=== PATIENT | female | born 1930 | race Caucasian/White ===

== ENCOUNTER 2018-04-22 15:57 | Inpatient (IN) | payer BC, OTHER ==
[~2018-04-22] VITALS: Ht 162.6 cm; Wt 74.8 kg
[2018-04-22] MEDS ORDERED: GLC/500 PO (16:23)
[2018-04-22] MEDS ORDERED: NAPR1TAB9 PO (16:23)
[2018-04-22] MEDS ORDERED: SIMV10TA2 PO (16:23)
[2018-04-22] MEDS ORDERED: ASPI81TA28 PO (16:23)
[2018-04-22] MEDS ORDERED: POTA10CA28 PO (16:23)
[2018-04-22] MEDS ORDERED: BISO2.5T PO (16:23)
[2018-04-22 16:30] LABS: HEMATOCRIT 41.8 % (37-47); HEMOGLOBIN 13.4 g/dL (12.0-16.0); MEAN CELL VOLUME 90.5 fL (80-100); MEAN CORPUSCULAR HGB CONC 32.1 g/dl (32-36); MEAN PLATELET VOLUME 9.7 fL (7.4-10.4); PLATELET COUNT 282 K/uL (130-400); RED CELL DISTRIBUTION WIDTH CV 15.4 % (11.5-14.5); RED CELL DISTRIBUTION WIDTH SD 50.7 fL (36.4-46.3); WHITE BLOOD COUNT 16.43 K/uL (4.8-10.8)
[2018-04-22] MEDS ORDERED: OPTIRAY 320 IV PRN (16:30)
[2018-04-22 16:38] LABS: PTT PATIENT 26.9 SECONDS (21.0-31.0)
[2018-04-22 16:47] LABS: BASO % 0.2 %; BASO ABS # 0.04 K/uL (0-0.2); CALCIUM 8.2 mg/dl (8.5-10.1); CREATININE 0.92 mg/dl (0.60-1.20); EOS % 4.6 %; EOS ABS # 0.76 K/uL (0-0.5); IG# 0.18 K/uL (0.00-0.02); LYMPH ABS # 1.15 K/uL (1.2-3.4); MONO % 7.5 %; MONO ABS # 1.24 K/uL (0.11-0.59); NEUT % 79.6 %; NEUT ABS # 13.06 K/uL (1.4-6.5); POTASSIUM 4.2 mmol/L (3.5-5.1)
--- NOTE | 2018-04-22 17:34 | DIAGNOSTIC IMAGING REPORT ---
CT ANGIOGRAPHY OF THE CHEST, PULMONARY EMBOLUS PROTOCOL CLINICAL HISTORY: Shortness of breath. COMPARISON STUDY: No previous studies for comparison. TECHNIQUE: Following IV administration of 116 mL of Optiray-320, helical axial images of the chest were obtained utilizing the pulmonary embolus protocol. Maximal intensity projections and sagittal and coronal reformats were viewed on an independent 3D workstation. IV contrast was administered without complication. A dose lowering technique was utilized adhering to the principles of ALARA. CT DOSE: 385.01 mGy.cm FINDINGS: No pulmonary emboli are identified. There is no evidence of thoracic aortic dissection. The heart is mildly enlarged. There is no pericardial effusion. Extensive coronary artery calcification is noted. Small right and trace left pleural effusions are noted. Subpleural bilateral airspace opacities, greatest within the right lower lobe, are noted. There is mild interlobular septal thickening. There is no pneumothorax. No cavitation is present. Multiple mildly enlarged mediastinal and right hilar lymph nodes are noted. Index subcarinal lymph node measures 1.2 cm. Index right paratracheal left node measures 1.4 cm. No suspicious osseous lesions are noted. Upper abdomen is unremarkable. IMPRESSION: 1. No pulmonary emboli identified. 2. Bilateral subpleural airspace opacities with interstitial thickening. Pulmonary edema is favored however superimposed pneumonia could appear similar. A chest CT in one month to ensure resolution is recommended. 3. Small right and trace left pleural effusions. 4. Mild mediastinal and right hilar lymphadenopathy which is likely reactive but can be assessed on follow-up chest CT to ensure resolution. Electronically signed by: Alec Lara M.D. 04/22/2018 5:33 PM Dictated Date/Time: 04/22/2018 5:22 PM
[2018-04-22] MEDS ORDERED: FUROSEMIDE 40 MG/4 ML VIAL IV STA (17:40)
[2018-04-22] MEDS ORDERED: PIPERACILLIN/TAZOBACTAM 4.5 GM/100ML D5W IV STA (17:40)
[2018-04-22] MEDS ORDERED: MAGNESIUM HYDROXIDE SUSP 30 ML UDC PO PRN (18:30)
[2018-04-22] MEDS ORDERED: NAPROXEN 250 MG TAB PO PRN (18:30)
[2018-04-22] MEDS ORDERED: ONDANSETRON INJ 2 MG/ML 2 ML VIAL IV PRN (18:30)
[2018-04-22] MEDS ORDERED: ACETAMINOPHEN 325 MG TAB PO PRN (18:30)
--- NOTE | 2018-04-22 18:41 | History and Physical ---
History & Physical Date & Time of Service: Apr 22, 2018 at 18:34 Chief Complaint: Shortness Of Breath, Swelling Legs & Feet Primary Care Physician: Dajuan Isaac M.D. History of Present Illness Source: patient 87 y/o F c/o SOB. Pt states that she has been SOB over the last two week. This is getting worse. It is with any exertion, including getting dressed this AM. She does not have SOB at rest or when lying flat. She also started to have b/l LE swelling which has never happened. She states it is better in the AM, but worse if she is on her feet for long periods. Her SOB resolves when she rests. No prior hx of breathing issues. She has been eating without issue. Pt denies fever, chest pain, abd pain, n/v/c/d, LE pain. Past Medical/Surgical History DM HTN Hyperlipidemia Family History Family history was reviewed; no changes noted. Denies TN, CHF, heart issues Social History Smoking Status: Never Smoker Alcohol Use: none Drug Use: none Allergies Coded Allergies: No Known Allergies (Unverified , 04/22/18) Home Medications Scheduled Aspirin (Aspirin Ec), 81 MG PO DAILY Bisoprolol & Hydrochlorothiazi (Bisoprolol Fumarate/[place]), 5-6.25 MG PO BID Metformin Hcl (Glucophage), 500 MG PO QPM Potassium Chloride (Micro-K Ext Rel), 10 MEQ PO DAILY Simvastatin (Zocor), 10 MG PO HS Scheduled PRN Naproxen (Aleve), 220 MG PO BID PRN for Pain Review of Systems Pertinent positives and negatives reviewed in HPI--all others negative Physical Exam Vital Signs Date Time Temp Pulse Resp B/P (MAP) Pulse Ox O2 Delivery O2 Flow Rate FiO2 04/22/18 18:27 80 31 94 04/22/18 18:01 143/69 04/22/18 17:57 79 33 93 04/22/18 17:31 124/76 04/22/18 17:27 82 33 93 04/22/18 17:12 88 22 151/67 93 Room Air 04/22/18 17:12 151/67 04/22/18 16:57 79 28 93 04/22/18 16:47 80 04/22/18 16:24 92 Room Air 04/22/18 16:17 95 Room Air 04/22/18 16:11 93 Room Air 04/22/18 16:00 36.9 95 24 150/68 88 Room Air General Appearance: WD/WN, no apparent distress Head: normocephalic, atraumatic Eyes: normal inspection, sclerae normal Respiratory/Chest: no respiratory distress, + crackles (bases) Cardiovascular: regular rate, rhythm, normal peripheral pulses Abdomen/GI: non tender, soft Extremities/Musculoskelatal: no calf tenderness, + pedal edema (1+ pitting) Neurologic/Psych: alert, normal mood/affect, oriented x 3 Skin: normal color, warm/dry Diagnostics Laboratory Results Results Past 24 Hours Test 04/22/18 16:19 04/22/18 16:29 Range/Units White Blood Count 16.43 4.8-10.8 K/uL Red Blood Count 4.62 4.2-5.4 M/uL Hemoglobin 13.4 12.0-16.0 g/dL Hematocrit 41.8 37-47 % Mean Corpuscular Volume 90.5 80-100 fL Mean Corpuscular Hemoglobin 29.0 25-34 pg Mean Corpuscular Hemoglobin Concent 32.1 32-36 g/dl Platelet Count 282 130-400 K/uL Mean Platelet Volume 9.7 7.4-10.4 fL Neutrophils (%) (Auto) 79.6 % Lymphocytes (%) (Auto) 7.0 % Monocytes (%) (Auto) 7.5 % Eosinophils (%) (Auto) 4.6 % Basophils (%) (Auto) 0.2 % Neutrophils # (Auto) 13.06 1.4-6.5 K/uL Lymphocytes # (Auto) 1.15 1.2-3.4 K/uL Monocytes # (Auto) 1.24 0.11-0.59 K/uL Eosinophils # (Auto) 0.76 0-0.5 K/uL Basophils # (Auto) 0.04 0-0.2 K/uL RDW Standard Deviation 50.7 36.4-46.3 fL RDW Coefficient of Variation 15.4 11.5-14.5 % Immature Granulocyte % (Auto) 1.1 % Immature Granulocyte # (Auto) 0.18 0.00-0.02 K/uL Prothrombin Time 10.8 9.0-12.0 SECONDS Prothromb Time International Ratio 1.0 0.9-1.1 Activated Partial Thromboplast Time 26.9 21.0-31.0 SECONDS Partial Thromboplastin Ratio 1.0 Sodium Level 140 136-145 mmol/L Potassium Level 4.2 3.5-5.1 mmol/L Chloride Level 108 98-107 mmol/L Carbon Dioxide Level 24 21-32 mmol/L Anion Gap 8.0 3-11 mmol/L Blood Urea Nitrogen 34 7-18 mg/dl Creatinine 0.92 0.60-1.20 mg/dl Est Creatinine Clear Calc Drug Dose 43.5 ml/min Estimated GFR () 65.3 Estimated GFR (Non- 56.4 BUN/Creatinine Ratio 37.1 10-20 Random Glucose 128 70-99 mg/dl Calcium Level 8.2 8.5-10.1 mg/dl Pro-B-Type Natriuretic Peptide 1213 0-1800 pg/ml Bedside Troponin I < 0.030 0-0.045 ng/ml Microbiology Results 04/22/18 Blood Culture, Ordered Pending 04/22/18 Blood Culture, Ordered Pending Diagnostic Radiology CTA: neg for PE, CHF noted, ?? PNA EKG NSR Impression Assessment and Plan 87 y/o F who was admitted on 04/22 with new onset CHF SOB: no prior hx of CHF Hypoxic on presentation, improved s/p lasix CTA neg for PE, but notes CHF with ?? PNA Given pt has elevated WBC, will continue with abx, switch to rocephin Possibly CHF is situational related to PNA ECHO pending K WNL, monitor s/p lasix Given lasix 40mg IV in the ED, will hold further and leave to discretion of day team given lasix naive pt Trop neg x1, repeat x1 pending A1c, lipids pending DM: stable, continue home meds A1c pending HTN: stable, continue home meds Hyperlipidemia: stable, continue home meds CAD prevention: no hx of TN, CVA Continue aspirin 81mg, although could continue d/c given pt is >70 y/o without hx requiring use Other: DNR/DNI, pt request and has recently completed paperwork with same request. Family is present and agrees DM diet Lovenox for DVT proph Resuscitation Status VTE Prophylaxis Will order VTE Prophylaxis: Yes Additional Copies To Dajuan Isaac M.D.
[2018-04-22 19:55] VITALS: BP 130/65; PULSE 81; TEMP 36.7; O2SAT 95; Ht 162.6 cm; Wt 74.8 kg
[2018-04-22] MEDS ORDERED: CEFTRIAXONE SOD INJ 1 GM in DEXTROSE 5% ADD-VANTAGE 50ML 50 ML IV SCH (22:00)
--- NOTE | 2018-04-22 22:08 | EMERGENCY ROOM VISIT NOTE ---
History Report prepared by Kirsten: Luca Daley Under the Supervision of: Dr. Dajuan Leiva M.D. First contact with patient: 16:05 Chief Complaint: SHORTNESS OF BREATH Stated Complaint: SHORTNESS OF BREATH, SWELLING LEGS & FEET History of Present Illness The patient is a 87 year old female with a past medical history of HTN and Diabetes who presents to the Emergency Room with complaints of shortness of breath. The patient notes the symptoms started x2 weeks ago when she started taking Meloxicam for arthritis and swelling in her hands as well as after taking a car-ride to [place]. She states she took the Meloxicam for x6 days and then her legs started to swell so she stopped the medication and has been off of it x9 days. She states she feels the shortness of breath with exertion, and becomes tired/weak. She does also note an intermittent cough and states she hasn't been eating well since this started. She denies leg pain, chest pain/ pressure, cold symptoms, diaphoresis, or fever. The patient denies a history of blood clots, COPD, heart failure, or emphysema. Source of History: patient Onset: 2 weeks Symptom Intensity: moderate Timing: waxes/wanes Modifying Factors (Worsening): exertion Associated Symptoms: + cough, + weakness, No fevers, No chills, No diaphoresis, No chest pain, No nausea, No vomiting, No abdominal pain, No diarrhea Review of Systems See HPI for pertinent positives & negatives. A total of 10 systems reviewed and were otherwise negative. Constitutional: + weakness, No fever, No chills, No sweats Respiratory: + cough, + shortness of breath Cardiovascular: No chest pain Abdomen: No pain, No vomiting, No diarrhea, No constipation Musculoskeletal: + swelling Genitourinary - Female: No dysuria, No urinary frequency, No urinary urgency , No urinary incontinence Integumentary: No rash Past Medical & Surgical Medical Problems: (1) CHF (congestive heart failure) (2) Diabetes (3) HTN (hypertension) Family History Patient reports no known family medical history. Social History Smoking Status: Never Smoker Smokeless Tobacco Use: Unknown Drug Use: none Occupation Status: retired Current/Historical Medications Scheduled Aspirin (Aspirin Ec), 81 MG PO DAILY Bisoprolol & Hydrochlorothiazi (Bisoprolol Fumarate/[place]), 5-6.25 MG PO BID Metformin Hcl (Glucophage), 500 MG PO QPM Potassium Chloride (Micro-K Ext Rel), 10 MEQ PO DAILY Simvastatin (Zocor), 10 MG PO HS Scheduled PRN Naproxen (Aleve), 220 MG PO BID PRN for Pain Allergies Coded Allergies: No Known Allergies (Unverified , 04/22/18) Physical Exam Vital Signs Date Time Temp Pulse Resp B/P (MAP) Pulse Ox O2 Delivery O2 Flow Rate FiO2 04/22/18 18:27 80 31 94 04/22/18 18:01 143/69 04/22/18 17:57 79 33 93 04/22/18 17:31 124/76 04/22/18 17:27 82 33 93 04/22/18 17:12 88 22 151/67 93 Room Air 04/22/18 17:12 151/67 04/22/18 16:57 79 28 93 04/22/18 16:47 80 04/22/18 16:24 92 Room Air 04/22/18 16:17 95 Room Air 04/22/18 16:11 93 Room Air 04/22/18 16:00 36.9 95 24 150/68 88 Room Air Physical Exam Constitutional: Vital signs reviewed. Eyes: Pupils are equal round reactive to light. Conjunctiva are noninjected. ENT: Pharynx is clear without erythema or exudate. Mucous membranes are moist. Neck supple without meningeal signs. Respiratory: Clear to auscultation bilaterally. Breath sounds are equal bilaterally. Cardiovascular: Regular rate and rhythm. No rubs or gallops. GI: Soft, nondistended and nontender. Bowel sounds are present. Musculoskeletal: Pitting edema noted to the bilateral lower extremities. No lower extremity tenderness. Integumentary: No cyanosis. Neurological: The patient is awake and alert. No focal deficits. Psychiatric: Normal affect. Medical Decision & Procedures ER Provider Diagnostic Interpretation: CT ANGIOGRAPHY OF THE CHEST, PULMONARY EMBOLUS PROTOCOL CLINICAL HISTORY: Shortness of breath. COMPARISON STUDY: No previous studies for comparison. TECHNIQUE: Following IV administration of 116 mL of Optiray-320, helical axial images of the chest were obtained utilizing the pulmonary embolus protocol. Maximal intensity projections and sagittal and coronal reformats were viewed on an independent 3D workstation. IV contrast was administered without complication. A dose lowering technique was utilized adhering to the principles of ALARA. CT DOSE: 385.01 mGy.cm FINDINGS: No pulmonary emboli are identified. There is no evidence of thoracic aortic dissection. The heart is mildly enlarged. There is no pericardial effusion. Extensive coronary artery calcification is noted. Small right and trace left pleural effusions are noted. Subpleural bilateral airspace opacities, greatest within the right lower lobe, are noted. There is mild interlobular septal thickening. There is no pneumothorax. No cavitation is present. Multiple mildly enlarged mediastinal and right hilar lymph nodes are noted. Index subcarinal lymph node measures 1.2 cm. Index right paratracheal left node measures 1.4 cm. No suspicious osseous lesions are noted. Upper abdomen is unremarkable. IMPRESSION: 1. No pulmonary emboli identified. 2. Bilateral subpleural airspace opacities with interstitial thickening. Pulmonary edema is favored however superimposed pneumonia could appear similar. A chest CT in one month to ensure resolution is recommended. 3. Small right and trace left pleural effusions. 4. Mild mediastinal and right hilar lymphadenopathy which is likely reactive but can be assessed on follow-up chest CT to ensure resolution. Laboratory Results 04/22/18 16:19 Red Blood Count 4.62, Mean Corpuscular Volume 90.5, Mean Corpuscular Hemoglobin 29.0, Mean Corpuscular Hemoglobin Concent 32.1, Mean Platelet Volume 9.7, Neutrophils (%) (Auto) 79.6, Lymphocytes (%) (Auto) 7.0, Monocytes (%) (Auto) 7.5, Eosinophils (%) (Auto) 4.6, Basophils (%) (Auto) 0.2, Neutrophils # (Auto) 13.06, Lymphocytes # (Auto) 1.15, Monocytes # (Auto) 1.24, Eosinophils # (Auto) 0.76, Basophils # (Auto) 0.04 04/22/18 16:19 Test 04/22/18 16:19 04/22/18 16:29 White Blood Count 16.43 K/uL (4.8-10.8) Red Blood Count 4.62 M/uL (4.2-5.4) Hemoglobin 13.4 g/dL (12.0-16.0) Hematocrit 41.8 % (37-47) Mean Corpuscular Volume 90.5 fL (80-100) Mean Corpuscular Hemoglobin 29.0 pg (25-34) Mean Corpuscular Hemoglobin Concent 32.1 g/dl (32-36) Platelet Count 282 K/uL (130-400) Mean Platelet Volume 9.7 fL (7.4-10.4) Neutrophils (%) (Auto) 79.6 % Lymphocytes (%) (Auto) 7.0 % Monocytes (%) (Auto) 7.5 % Eosinophils (%) (Auto) 4.6 % Basophils (%) (Auto) 0.2 % Neutrophils # (Auto) 13.06 K/uL (1.4-6.5) Lymphocytes # (Auto) 1.15 K/uL (1.2-3.4) Monocytes # (Auto) 1.24 K/uL (0.11-0.59) Eosinophils # (Auto) 0.76 K/uL (0-0.5) Basophils # (Auto) 0.04 K/uL (0-0.2) RDW Standard Deviation 50.7 fL (36.4-46.3) RDW Coefficient of Variation 15.4 % (11.5-14.5) Immature Granulocyte % (Auto) 1.1 % Immature Granulocyte # (Auto) 0.18 K/uL (0.00-0.02) Prothrombin Time 10.8 SECONDS (9.0-12.0) Prothromb Time International Ratio 1.0 (0.9-1.1) Activated Partial Thromboplast Time 26.9 SECONDS (21.0-31.0) Partial Thromboplastin Ratio 1.0 Anion Gap 8.0 mmol/L (3-11) Est Creatinine Clear Calc Drug Dose 43.5 ml/min Estimated GFR () 65.3 Estimated GFR (Non- 56.4 BUN/Creatinine Ratio 37.1 (10-20) Calcium Level 8.2 mg/dl (8.5-10.1) Pro-B-Type Natriuretic Peptide 1213 pg/ml (0-1800) Bedside Troponin I < 0.030 ng/ml (0-0.045) Medications Administered Medications (Trade) Dose Ordered Sig/Cathy Route Start Time Stop Time Status Last Admin Dose Admin Furosemide (Lasix Inj) 40 mg NOW STAT IV 04/22/18 17:40 04/22/18 17:47 DC 04/22/18 19:28 40 MG Piperacillin Sod/ Tazobactam Sod (Zosyn Iv) 4.5 gm NOW STAT IV 04/22/18 17:40 04/22/18 17:47 DC 04/22/18 19:36 4.5 GM ECG Per My Interpretation Indication: SOB/dyspnea Rate (beats per minute): 88 Rhythm: normal sinus Findings: nonspecific-ST abn, other (no ST elevations or PVCs) ED Course Rechecks: [id number]: Reviewed test rests with patient. At this time she agrees to admission. All questions answered. Will call hospitalist for admission. Medical Decision This is an 87-year-old female presents with shortness of breath. Differential diagnosis includes acute coronary syndrome, CHF, pulmonary embolism, pneumonia, pleural effusion, anemia. I did perform a limited focused review of portions of the patient's old chart on the electronic medical record. The patient has had no recent pertinent visits to this hospital. I did evaluate the patient as noted above. Patient is presenting with dyspnea on exertion. She denies any chest discomfort. IV access was established. The patient was placed on a continuous telemetry monitor. She is initially hypoxic on room air. This did improve spontaneously. I did order and personally review the patient's 12-lead EKG as described above. I did order and review the patient's blood work as noted in the electronic medical record. She has an elevated white blood cell count. Her troponin is negative. After discussion with patient, I did order a CT of the chest. I did review the images myself as well as the radiology report as described above. There is no evidence of pulmonary embolism. She does have what looks like pulmonary edema as well as underlying infiltrate bilaterally with pleural effusions. The patient does state that she has been coughing somewhat and has an elevated white count. Blood cultures were obtained and she was given Zosyn IV. I also treated her with Lasix IV. I did discuss the test results with the patient and her family. As the patient is unable to even walk without becoming very short of breath and was hypoxic initially on arrival here I did recommend hospitalization for further care and evaluation. I did discuss the case with the hospitalist and director case. Medication Reconcilliation Current Medication List: was personally reviewed by me Blood Pressure Screening Patient's blood pressure: Elevated blood pressure Blood pressure disposition: Referred to PCP Consults Time Called: [phone] Consulting Physician: Dr. Artis Returned Call: [phone] Agrees to admit the patient Impression Primary Impression: Bilateral pneumonia Additional Impressions: Congestive heart failure Bilateral pleural effusion Scribe Attestation The scribe's documentation has been prepared under my direct and personally reviewed by me in its entirety. I confirm that the note above accurately reflects all work, treatment, procedures, and medical decision making performed by me. Departure Information Dispostion Being Evaluated By Hospitalist Patient Instructions My [facility] Problem Qualifiers Primary Impression: Bilateral pneumonia Pneumonia type: due to unspecified organism Lung location: lower lobe of lung Qualified Codes: J18.1 - Lobar pneumonia, unspecified organism Additional Impressions: Congestive heart failure Heart failure type: unspecified Heart failure chronicity: acute Qualified Codes: I50.9 - Heart failure, unspecified
[2018-04-22] MEDS: SIMVASTATIN 10 MG TAB PO SCH (22:34)
[2018-04-22] MEDS: ENOXAPARIN 40 MG/0.4 ML SYR SC SCH (22:36)
[2018-04-22 23:21] VITALS: BP 135/68; PULSE 84; TEMP 37.5; O2SAT 92
[2018-04-22] MEDS: CEFTRIAXONE SOD INJ 1 GM in DEXTROSE 5% ADD-VANTAGE 50ML 50 ML IV SCH (23:45)
[2018-04-23] VITALS (8 sets, daily range): BP systolic 115–150; BP diastolic 64–77; PULSE 76–122; TEMP 36.5–37.4; O2SAT 91–98
[2018-04-23 07:34] LABS: CALCIUM 7.6 mg/dl (8.5-10.1); CREATININE 0.97 mg/dl (0.60-1.20); POTASSIUM 3.9 mmol/L (3.5-5.1)
[2018-04-23] MEDS ORDERED: AZITHROMYCIN IV 500 MG in DEXTROSE 5% 250ML 250 ML IV ONE (07:58)
[2018-04-23] MEDS ORDERED: GLUCAGON FOR INJ 1 MG VIAL SQ PRN (08:15)
[2018-04-23] MEDS ORDERED: CARBOHYDRATES FOR HYPOGLYCEMIA PO PRN (08:15)
[2018-04-23] MEDS ORDERED: GLUCOSE 40% GEL 15 GM TUBE PO PRN (08:15)
[2018-04-23] MEDS ORDERED: GLUCOSE 10 TABS/TUBE PO PRN (08:15)
[2018-04-23] MEDS ORDERED: DEXTROSE 50% 50 ML SYR IV PRN (08:15)
--- NOTE | 2018-04-23 09:27 | Hospitalist Progress Note ---
Hospitalist Progress Note Date of Service Apr 23, 2018. Subjective Pt evaluation today including: conversation w/ patient, physical exam, lab review Patient complains of pain in her bilateral hands right greater than left. She admits to a dry cough and shortness of breath for the last 2 weeks. No fevers but has felt very fatigued. She denies any rashes or tick bites. She worked in a [employer] but in the office side was not exposed to any inhaled chemicals. She never smoked and only had minimal exposure to secondhand smoke as a child from her father. She has never had pneumonia before. No history of any wheezing or lung problems. Telemetry with sinus tachycardia starting earlier this morning, but previous to that was normal sinus rhythm with rates in the 80s. Of note, she has not received her beta-bonnie as it is not available on our formulary Constitutional: + fatigue All Other Systems: Reviewed and Negative Objective Vital Signs Date Time Temp Pulse Resp B/P (MAP) Pulse Ox O2 Delivery O2 Flow Rate FiO2 04/23/18 07:29 36.5 76 18 115/73 (87) 98 04/23/18 03:37 36.7 85 18 115/64 (81) 92 Room Air 04/23/18 00:02 Room Air 04/22/18 23:21 37.5 84 18 135/68 (90) 92 Room Air 04/22/18 19:55 36.7 81 21 130/65 95 Room Air 04/22/18 19:26 36.9 76 22 133/66 93 04/22/18 19:14 76 22 133/66 93 Room Air 04/22/18 18:27 80 31 94 04/22/18 18:01 143/69 04/22/18 17:57 79 33 93 04/22/18 17:31 124/76 04/22/18 17:27 82 33 93 04/22/18 17:12 88 22 151/67 93 Room Air 04/22/18 17:12 151/67 04/22/18 16:57 79 28 93 04/22/18 16:47 80 04/22/18 16:24 92 Room Air 04/22/18 16:17 95 Room Air 04/22/18 16:11 93 Room Air 04/22/18 16:00 36.9 95 24 150/68 88 Room Air Physical Exam General Appearance: WD/WN, no apparent distress Eyes: normal inspection, PERRL, EOMI, sclerae normal ENT: hearing grossly normal, pharynx normal Neck: supple, no adenopathy, no JVD, no carotid bruits, trachea midline Respiratory/Chest: no respiratory distress, no accessory muscle use, + crackles (At the bases bilaterally right greater than left, a few dry crackles in the right middle lung field) Cardiovascular: no murmur, + tachycardia (With regular rhythm) Abdomen: normal bowel sounds, non tender, soft, no organomegaly, no pulsatile mass Extremities: non-tender, no calf tenderness, + swelling (Very trace edema in the lower extremities left greater than right) Neurologic/Psychiatric: no motor/sensory deficits, alert, normal mood/affect, oriented x 3 Skin: normal color, warm/dry, no rash Lymphatic: no adenopathy Laboratory Results Last 24 Hours Test 04/22/18 16:19 04/22/18 16:29 04/22/18 20:14 04/23/18 00:17 White Blood Count 16.43 K/uL Red Blood Count 4.62 M/uL Hemoglobin 13.4 g/dL Hematocrit 41.8 % Mean Corpuscular Volume 90.5 fL Mean Corpuscular Hemoglobin 29.0 pg Mean Corpuscular Hemoglobin Concent 32.1 g/dl Platelet Count 282 K/uL Mean Platelet Volume 9.7 fL Neutrophils (%) (Auto) 79.6 % Lymphocytes (%) (Auto) 7.0 % Monocytes (%) (Auto) 7.5 % Eosinophils (%) (Auto) 4.6 % Basophils (%) (Auto) 0.2 % Neutrophils # (Auto) 13.06 K/uL Lymphocytes # (Auto) 1.15 K/uL Monocytes # (Auto) 1.24 K/uL Eosinophils # (Auto) 0.76 K/uL Basophils # (Auto) 0.04 K/uL RDW Standard Deviation 50.7 fL RDW Coefficient of Variation 15.4 % Immature Granulocyte % (Auto) 1.1 % Immature Granulocyte # (Auto) 0.18 K/uL Prothrombin Time 10.8 SECONDS Prothromb Time International Ratio 1.0 Activated Partial Thromboplast Time 26.9 SECONDS Partial Thromboplastin Ratio 1.0 Sodium Level 140 mmol/L Potassium Level 4.2 mmol/L Chloride Level 108 mmol/L Carbon Dioxide Level 24 mmol/L Anion Gap 8.0 mmol/L Blood Urea Nitrogen 34 mg/dl Creatinine 0.92 mg/dl Est Creatinine Clear Calc Drug Dose 43.5 ml/min Estimated GFR () 65.3 Estimated GFR (Non- 56.4 BUN/Creatinine Ratio 37.1 Random Glucose 128 mg/dl Calcium Level 8.2 mg/dl Pro-B-Type Natriuretic Peptide 1213 pg/ml Bedside Troponin I < 0.030 ng/ml Bedside Glucose 112 mg/dl Troponin I < 0.015 ng/ml Test 04/23/18 06:07 04/23/18 07:23 Sodium Level 140 mmol/L Potassium Level 3.9 mmol/L Chloride Level 109 mmol/L Carbon Dioxide Level 21 mmol/L Anion Gap 10.0 mmol/L Blood Urea Nitrogen 33 mg/dl Creatinine 0.97 mg/dl Est Creatinine Clear Calc Drug Dose 40.6 ml/min Estimated GFR () 61.3 Estimated GFR (Non- 52.9 BUN/Creatinine Ratio 34.5 Random Glucose 118 mg/dl Estimated Average Glucose 154 mg/dl Hemoglobin A1c 7.0 % Calcium Level 7.6 mg/dl Triglycerides Level 298 mg/dl Cholesterol Level 97 mg/dl HDL Cholesterol 15 mg/dl LDL Cholesterol, Calculated 22 mg/dl VLDL Cholesterol, Calculated 60 mg/dl Cholesterol/HDL Ratio 6.5 Bedside Glucose 126 mg/dl Diagnostic Results Hand x-rays and CT chest images personally reviewed by me and agree with the following reports: CT ANGIOGRAPHY OF THE CHEST, PULMONARY EMBOLUS PROTOCOL CLINICAL HISTORY: Shortness of breath. COMPARISON STUDY: No previous studies for comparison. TECHNIQUE: Following IV administration of 116 mL of Optiray-320, helical axial images of the chest were obtained utilizing the pulmonary embolus protocol. Maximal intensity projections and sagittal and coronal reformats were viewed on an independent 3D workstation. IV contrast was administered without complication. A dose lowering technique was utilized adhering to the principles of ALARA. CT DOSE: 385.01 mGy.cm FINDINGS: No pulmonary emboli are identified. There is no evidence of thoracic aortic dissection. The heart is mildly enlarged. There is no pericardial effusion. Extensive coronary artery calcification is noted. Small right and trace left pleural effusions are noted. Subpleural bilateral airspace opacities, greatest within the right lower lobe, are noted. There is mild interlobular septal thickening. There is no pneumothorax. No cavitation is present. Multiple mildly enlarged mediastinal and right hilar lymph nodes are noted. Index subcarinal lymph node measures 1.2 cm. Index right paratracheal left node measures 1.4 cm. No suspicious osseous lesions are noted. Upper abdomen is unremarkable. IMPRESSION: 1. No pulmonary emboli identified. 2. Bilateral subpleural airspace opacities with interstitial thickening. Pulmonary edema is favored however superimposed pneumonia could appear similar. A chest CT in one month to ensure resolution is recommended. 3. Small right and trace left pleural effusions. 4. Mild mediastinal and right hilar lymphadenopathy which is likely reactive but can be assessed on follow-up chest CT to ensure resolution. L HAND MIN 3 VIEWS ROUTINE, R HAND MIN 3 VIEWS ROUTINE CLINICAL HISTORY: hand joint pain R>L x 2 weeks COMPARISON STUDY: None. FINDINGS: The bones are osteopenic. No acute fracture or dislocation within the right or left hand. No erosive changes identified. Bhda-[id number] osteoarthritis within the PIP and DIP joints of the bilateral hands. This is most pronounced within the DIP joints. Mild soft tissue swelling within the hands most pronounced at the index fingers. IMPRESSION: 1. No fracture or dislocation within the right or left hand. 2. Mild/moderate osteoarthritis. 3. Mild soft tissue swelling within the hand. Lower extremity bilateral venous Doppler-negative for DVT Assessment and Plan This patient is an 87 y/o female with a history of HTN, DM 2, hyperlipidemia, who was admitted with worsening shortness of breath, peripheral edema, with suspected acute diastolic CHF as well as right middle and lower lobe pneumonias. Also with acute hypoxic respiratory failure. Dyspnea/pneumonia/sepsis POA/acute hypoxic respiratory failure-with tachycardia , tachypnea, leukocytosis, and pneumonia seen on CT chest-meets criteria for sepsis. She was hypoxic upon arrival and is now weaned off of oxygen. She received 1 dose of IV Lasix in the ER for suspected CHF. She was also started on antibiotics with Rocephin. CT angiogram negative for PE. Venous Doppler of the lower extremities negative for DVT. Afebrile here, with profound fatigue for the last 2 weeks-question if was having fevers at home. Some component of acute on chronic diastolic CHF is contributing to her presentation as well. 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 ProBNP is normal for her age. I believe her CT chest findings are more consistent with infectious process rather than pulmonary edema. She received 1 dose of IV Lasix in the ER. -No further Lasix to be given -Continue to monitor I's and O's, daily weights -Optimize blood pressure control HTN/sinus tachycardia-likely secondary to acute infectious process but also withdrawal from beta-bonnie -Replace bisoprolol with metoprolol 12.5 mg p.o. 4 times daily -Monitor on telemetry -Holding HCTZ from home DMII: stable, Hgb A1c here is 7.0%, well controlled, on metformin only at home -Hold home metformin given recent IV contrast dye -Accu-Cheks and sliding scale insulin for now Hyperlipidemia: stable, continue home statin, ASA Hand pain and swelling-treated with NSAIDs as an outpatient -Obtain bilateral hand x-rays, continue naproxen as needed for pain Prophylaxis-Lovenox SQ Disposition-remain on telemetry
[2018-04-23] MEDS ORDERED: METOPROLOL TARTRATE 25 MG TAB PO ONE (09:33)
[2018-04-23] MEDS: ASPIRIN 81 MG ECTAB PO SCH (09:41)
[2018-04-23] MEDS: POTASSIUM CHLORIDE 10 MEQ TABCR PO SCH (09:41)
--- NOTE | 2018-04-23 12:26 | Clinical Documentation Query ---
CLINICAL DOCUMENTATION QUERY 87 year old female who presents with pneumonia and possible new onset CHF. In your clinical opinion is this patient being managed for: (x ) Acute diastolic (preserved EF) CHF ( ) Acute systolic (reduced EF) CHF ( ) Acute systolic & diastolic CHF ( ) Not Agree ( ) Other explanation of clinical findings (No explanation is considered a No Response) ( ) Unable to determine ( ) Need to Discuss (Phone CDS or qliq) (No discussion is considered a No Response) The medical record reflects the following clinical findings, treatment, and risk factors. Clinical Indicators: CHF per H&P. ?of CHF on CTA Treatment: IV Lasix, telemetry, echo Risk Factors: Age, pneumonia, Please clarify and document your clinical opinion in the progress notes and discharge summary. Terms such as "probable", "suspected", "likely", "questionable", "possible", or "still to be ruled out" are acceptable. IF IN AGREEMENT, YOU MUST DOCUMENT ABOVE DIAGNOSTIC STATEMENT IN DAILY PROGRESS NOTES AND DISCHARGE SUMMARY. This document is not part of the patient's record. Thank You, Cristofer Cohen, OLGA [phone] & via qlicCONNECT
[2018-04-23] MEDS: INSULIN ASPART 100 UNITS/ML 3 ML PEN SC SCH ×3 (13:32→20:41)
--- NOTE | 2018-04-23 13:33 | ECHOCARDIOGRAM REPORT ---
*NOTICE TO RECEIVING [employer] This information is strictly Confidential and protected under [place] law. [place] law prohibits you from making any further disclosure of this information unless further disclosure is expressly permitted by the written consent of the person to whom it pertains or is authorized by law. A general authorization for the release of medical or other information is not sufficient for this purpose. Hospital accepts no responsibility if the information is made available to any other person, INCLUDING THE PATIENT. Interpretation Summary * Name: JJ ABEBE Study Date: 04/23/2018 06:50 AM BP: 115/73 mmHg * Patient Location: C.2T\S\S233\S\1 HR: 86 * : 1930 (M/d/yyyy) Gender: Female Height: 64 in * Age: 87 yrs Ethnicity: CA Weight: 165 lb * Ordering Physician: Melissa Artis * Referring Physician: Self, Referred * Performed By: Teresa Gonzalez RDCS * * Reason For Study: CHF * BSA: 1.8 m2 * -- Conclusions -- * 1. Normal LV size. Moderate concentric LVH. * 2. LVEF 65-70%. No regional wall motion abnormalities. * 3. Normal RV size and function. * 4. Grade I diastolic dysfunction. * 5. No significant valvular pathology. * 6. Normal estimated RA and PA pressures. * 7. No prior studies for comparison. Procedure Details * A complete two-dimensional transthoracic echocardiogram was performed (2D, M-mode, Doppler and color flow Doppler). Left Ventricle * The left ventricle is grossly normal size. * There is moderate concentric left ventricular hypertrophy. * Ejection Fraction = 65-70%. * No regional wall motion abnormalities noted. Right Ventricle * The right ventricle is grossly normal size. * The right ventricular systolic function is normal as assessed by tricuspid annular plane systolic excursion (TAPSE) (normal >1.5 cm). Atria * The left atrium is mildly dilated. * Right atrial size is normal. * No ASD detected; PFO is not assessed. Mitral Valve * The mitral valve is grossly normal. * There is no mitral valve stenosis. * There is trace mitral regurgitation. Tricuspid Valve * There is trace tricuspid regurgitation. * Right ventricular systolic pressure is normal. Aortic Valve * The aortic valve opens well. * The aortic valve is trileaflet. * No hemodynamically significant valvular aortic stenosis. * There is no significant aortic regurgitation. Pulmonic Valve * The pulmonary valve is inadequately visualized, but the Doppler data is adequate for interpretation. * Pulmonic stenosis is absent. * There is no significant pulmonary regurgitation. Great Vessels * The aortic root and proximal ascending aorta are normal sized. Pericardium/Pleural * Trivial pericardial effusion Great Vessels * Normal inferior vena cava size and collapsability with sniff indicates a normal right atrial pressure of 3 mmHg Left Ventricular Diastolic Function * Grade I diastolic dysfunction, (abnormal relaxation pattern). MMode 2D Measurements and Calculations IVSd 1.5 cm IVSs 2.1 cm LVIDd 4.1 cm LVIDs 2.6 cm LVPWd 1.7 cm LVPWs 2.0 cm IVS/LVPW 0.88 FS 36.3 % EDV(Teich) 74.6 ml ESV(Teich) 25.0 ml EF(Teich) 66.5 % EDV(cubed) 69.4 ml ESV(cubed) 17.9 ml EF(cubed) 74.1 % % IVS thick 40.9 % % LVPW thick 16.8 % LV mass(C)d 271.3 grams LV mass(C)dI 150.5 grams/m\S\2 LV mass(C)s 241.9 grams LV mass(C)sI 134.2 grams/m\S\2 SV(Teich) 49.6 ml SI(Teich) 27.5 ml/m\S\2 SV(cubed) 51.4 ml SI(cubed) 28.5 ml/m\S\2 Ao root diam 3.4 cm Ao root area 9.3 cm\S\2 LA dimension 4.7 cm LA/Ao 1.4 LVAd ap4 19.1 cm\S\2 LVLd ap4 6.8 cm EDV(MOD-sp4) 46.4 ml EDV(sp4-el) 45.6 ml LVAs ap4 11.3 cm\S\2 LVLs ap4 5.9 cm ESV(MOD-sp4) 19.8 ml ESV(sp4-el) 18.6 ml EF(MOD-sp4) 57.3 % EF(sp4-el) 59.3 % LVAd ap2 21.5 cm\S\2 LVLd ap2 7.0 cm EDV(MOD-sp2) 54.8 ml EDV(sp2-el) 55.8 ml LVAs ap2 12.4 cm\S\2 LVLs ap2 6.1 cm ESV(MOD-sp2) 22.6 ml ESV(sp2-el) 21.5 ml EF(MOD-sp2) 58.7 % EF(sp2-el) 61.4 % LVLd %diff 3.0 % EDV(MOD-bp) 51.2 ml LVLs %diff 3.5 % ESV(MOD-bp) 21.7 ml EF(MOD-bp) 57.6 % SV(MOD-sp4) 26.5 ml SI(MOD-sp4) 14.7 ml/m\S\2 SV(MOD-sp2) 32.2 ml SI(MOD-sp2) 17.9 ml/m\S\2 SV(MOD-bp) 29.5 ml SI(MOD-bp) 16.3 ml/m\S\2 SV(sp4-el) 27.0 ml SI(sp4-el) 15.0 ml/m\S\2 SV(sp2-el) 34.2 ml SI(sp2-el) 19.0 ml/m\S\2 Doppler Measurements and Calculations MV E max ede 74.4 cm/sec MV A max ede 108.9 cm/sec MV E/A 0.68 MV dec time 0.27 sec Ao V2 max 157.0 cm/sec Ao max PG 9.9 mmHg Ao max PG (full) 4.5 mmHg LV V1 max PG 5.4 mmHg LV V1 max 115.9 cm/sec
--- NOTE | 2018-04-23 14:06 | PULMONARY CONSULTATION ---
DATE OF CONSULTATION: 04/23/2018 TIME: 1:25 p.m. REPORT OF CONSULTATION: The patient was seen in room 233. She is an 87-year-old female with a chief complaint of shortness of breath. Her symptoms began about 2 weeks ago. She noticed she was getting a little winded even getting dressed. She goes out of her home and goes down to her mailbox, which is somewhat downhill. She is short of breath coming back up the hill. To a degree, she has had a little bit of shortness of breath walking from room to room. The patient had developed pain in her hands bilaterally. She saw her primary physician and was ordered meloxicam. She noticed some swelling of her legs after a few days and she thought it may have been the medicine, so she stopped it. The hand pain has continued. For about 2 weeks, she has been feeling fatigued, more than normal. Energy level is low. She feels tired and weak. She has had some intermittent cough. The cough, however, is not acute, but more chronic. She has had a dry tickle type cough for quite some time according to her daughter who was present during this evaluation. She has not coughed up any blood. She has had no chills, fevers or sweats. She feels that her appetite is good. There has been no weight loss or weight gain. There have been no rashes. PAST PULMONARY HISTORY: The patient specifically denies prior asthma, emphysema, tuberculosis, pneumonia, pleurisy or other respiratory problems. PAST SURGICAL HISTORY: Cholecystectomy. PAST MEDICAL HISTORY: 1. Hypertension. 2. Diabetes. 3. Childbirth x4. SOCIAL HISTORY: Tobacco never. ETOH - none. ALLERGIES: No known allergies. FAMILY HISTORY: Mother , age 75, heart disease. The patient does not know the medical history of her father. OCCUPATIONAL HISTORY: The patient worked in a [employer] for 17 years and a [employer] for 5 years. Otherwise, there have been no significant exposures. REVIEW OF SYSTEMS: Negative except for what is noted in the history of present illness. Ten systems reviewed. MEDICATIONS AT HOME: 1. Aspirin 81 mg daily. 2. Bisoprolol/hydrochlorothiazide 5/6.25 one b.i.d. 3. Metformin 500 mg daily. 4. Naproxen 220 mg b.i.d. p.r.n. 5. Potassium 10 mEq daily. 6. Simvastatin 10 mg at bedtime. PHYSICAL EXAMINATION: GENERAL: The patient is a very pleasant 87-year-old female who was cooperative, alert and oriented. She was in no distress at rest. VITAL SIGNS: Temperature is 36.8. The cardiac rate is elevated at 112 per minute. The rhythm is regular. I cannot exclude a gallop. Blood pressure 127/77. SKIN: Her skin was dark. She states that she tans very readily. HEENT: Pupils were reactive to light. Nares were clear. Mouth exam was unremarkable. NECK: Palpation of the neck reveals no lymph nodes. CHEST: Inspection of the chest reveals a dorsal kyphosis. LUNGS: Auscultation of the lung de reveals dry rales bilaterally posteriorly in the lower one-thirds. Respiratory rate is 18 breaths per minute at rest. No wheezing was heard. There was no accessory muscle use. ABDOMEN: Soft. Good bowel sounds were heard. There was a scar in the right upper quadrant from prior cholecystectomy. There was no tenderness to palpation, masses, or organomegaly. EXTREMITIES: Showed that her hands looked to be stiff, more so on the right than the left. There is some minimal swelling. There is trace edema of both lower extremities. There was no cyanosis or clubbing. IMAGING DATA: CAT scan of the chest done on admission showed no evidence of pulmonary emboli. She does have interstitial thickening with subpleural airspace opacities. There is most prominence noted at the right lung base. Small pleural effusions were noted on the right with just trace left effusion. Mild mediastinal adenopathy was noted in the paratracheal lymph node measured up to 14 mm. LABORATORY DATA: White count of 16.43. Hemoglobin 13.4. Platelets 282,000. Coags are normal. Troponin was negative. Cholesterol was normal at 97. Triglycerides elevated at 298. Electrolytes show sodium 140, potassium 3.9, chloride 109, bicarbonate 21. BUN is 33 with a creatinine of 0.97. Echocardiogram is done and the results are still pending. EKG shows a normal sinus rhythm at 88. There are nonspecific ST and T-wave changes. There is a left axis deviation. There was delayed R-wave progression across the precordium with an inability to exclude a prior anterior infarct. IMPRESSION AND PLAN: 1. Shortness of breath of undetermined origin. 2. Small pleural effusions greater on the right. 3. Right middle lobe and right lower lobe infiltrates. 4. Adenopathy. 5. Rule out interstitial lung disease. The patient seems well, but she clearly has abnormal findings. She has more what sounds to be dry rales. This would usually be heard with some type of interstitial process. She does have a history of recent onset of arthritis. It is not clear; however, if this is osteo or rheumatoid. Rheumatoid arthritis can affect the lungs with an interstitial pattern. She did have a ProBNP done that was normal at 1213. This would seem to make the likelihood of congestive heart failure less likely, but not impossible. She did have what sounded like a gallop on exam. The echo may answer some of these questions. I believe the patient should have pulmonary function tests if we can arrange them. I would like to order a rheumatoid factor, sed rate, KALEN, and hypersensitivity pneumonitis panel. She is currently being treated as if she has pneumonia. We cannot entirely exclude that possibility, although it seems a little less likely. I have no problems with ceftriaxone and azithromycin as currently ordered. Further suggestions will be made as her course unfolds. Thank you very much for asking me to assist in her care.
[2018-04-23] MEDS ORDERED: METOPROLOL TARTRATE 25 MG TAB PO STA (15:10)
--- NOTE | 2018-04-23 16:05 | DIAGNOSTIC IMAGING REPORT ---
BILATERAL LOWER EXTREMITY VENOUS DOPPLER HISTORY: leg swelling bilateral,r/o DVT COMPARISON STUDY: None. FINDINGS: There is normal compressibility, flow, and augmentation within the bilateral lower extremity deep venous systems. IMPRESSION: No DVT within the right or left lower extremity. Electronically signed by: Aaron Alves M.D. 04/23/2018 4:04 PM Dictated Date/Time: 04/23/2018 4:02 PM
--- NOTE | 2018-04-23 17:36 | DIAGNOSTIC IMAGING REPORT ---
L HAND MIN 3 VIEWS ROUTINE, R HAND MIN 3 VIEWS ROUTINE CLINICAL HISTORY: hand joint pain R>L x 2 weeks COMPARISON STUDY: None. FINDINGS: The bones are osteopenic. No acute fracture or dislocation within the right or left hand. No erosive changes identified. Lzaj-lt-ufsjyash osteoarthritis within the PIP and DIP joints of the bilateral hands. This is most pronounced within the DIP joints. Mild soft tissue swelling within the hands most pronounced at the index fingers. IMPRESSION: 1. No fracture or dislocation within the right or left hand. 2. Mild/moderate osteoarthritis. 3. Mild soft tissue swelling within the hand. Electronically signed by: Araon Alves M.D. 04/23/2018 5:34 PM Dictated Date/Time: 04/23/2018 5:30 PM
[2018-04-23] MEDS: METOPROLOL TARTRATE 25 MG TAB PO SCH ×2 (18:20→20:41)
[2018-04-23] MEDS: SIMVASTATIN 10 MG TAB PO SCH (20:40)
[2018-04-23] MEDS: ENOXAPARIN 40 MG/0.4 ML SYR SC SCH (20:41)
[2018-04-23] MEDS ORDERED: HYDROCHLOROTHIAZI PO SCH (21:00)
[2018-04-23] MEDS ORDERED: BISOPROLOL PO SCH (21:00)
[2018-04-23] MEDS ORDERED: METOPROLOL TARTRATE 25 MG TAB PO SCH (21:00)
[2018-04-23] MEDS: CEFTRIAXONE SOD INJ 1 GM in DEXTROSE 5% ADD-VANTAGE 50ML 50 ML IV SCH (23:38)
[2018-04-24 03:14] VITALS: BP 125/69; PULSE 117; TEMP 36.7; O2SAT 95
[2018-04-24 06:09] LABS: BASO % 0.3 %; BASO ABS # 0.04 K/uL (0-0.2); EOS % 5.4 %; EOS ABS # 0.78 K/uL (0-0.5); HEMATOCRIT 39.1 % (37-47); IG# 0.16 K/uL (0.00-0.02); LYMPH % 8.3 %; MEAN CELL VOLUME 89.7 fL (80-100); MEAN CORPUSCULAR HEMOGLOBIN 29.8 pg (25-34); MEAN CORPUSCULAR HGB CONC 33.2 g/dl (32-36); MEAN PLATELET VOLUME 9.6 fL (7.4-10.4); MONO % 8.2 %; MONO ABS # 1.19 K/uL (0.11-0.59); NEUT % 76.7 %; NEUT ABS # 11.06 K/uL (1.4-6.5); PLATELET COUNT 266 K/uL (130-400); RED CELL DISTRIBUTION WIDTH SD 49.3 fL (36.4-46.3); WHITE BLOOD COUNT 14.43 K/uL (4.8-10.8)
[2018-04-24 06:46] LABS: ALKALINE PHOSPHATASE 89 U/L (45-117); ALT/SGPT 23 U/L (12-78); AST/SGOT 36 U/L (15-37); BLOOD UREA NITROGEN 30 mg/dl (7-18); CALCIUM 7.7 mg/dl (8.5-10.1); CARBON DIOXIDE 22 mmol/L (21-32); CREATININE 0.83 mg/dl (0.60-1.20); GLUCOSE 117 mg/dl (70-99); POTASSIUM 3.7 mmol/L (3.5-5.1); SODIUM 139 mmol/L (136-145); TOTAL PROTEIN 5.6 gm/dl (6.4-8.2)
[2018-04-24] MEDS: METOPROLOL TARTRATE 25 MG TAB PO SCH ×4 (08:07→20:46)
[2018-04-24] MEDS: ASPIRIN 81 MG ECTAB PO SCH (08:07)
[2018-04-24] MEDS: POTASSIUM CHLORIDE 10 MEQ TABCR PO SCH (08:07)
[2018-04-24] MEDS: AZITHROMYCIN IV 250 MG in DEXTROSE 5% 250ML 250 ML IV SCH (08:07)
[2018-04-24] MEDS: INSULIN ASPART 100 UNITS/ML 3 ML PEN SC SCH ×4 (08:14→20:46)
[2018-04-24 08:17] VITALS: BP 145/73; PULSE 131; TEMP 37; O2SAT 91
--- NOTE | 2018-04-24 08:40 | PULMONARY PROGRESS NOTE ---
DATE: 04/24/2018 TIME: 8:15 a.m. SUBJECTIVE: The patient feels about the same. She feels weak and fatigued. She has not been walking and now she has not done anything to make her short of breath. She has had a sinus tachycardia. She does not notice any palpitations. Her hands are still hurting. She states she did sleep better because the hand pain was diminished. OBJECTIVE: GENERAL: The patient appears comfortable. VITAL SIGNS: Temperature is 36.7. The maximum temperature in the past 24 hours was 37.4. Heart rate currently is 132 per minute. Rhythm is regular. Blood pressure taken earlier this morning was 125/69. ENT: Unchanged from yesterday. CHEST: Auscultation of the lung de again reveals primarily rales in the right and left lower lung de. These seem to be dry rales. Respiratory rate was 18 breaths per minute. Saturation was 91% on room air taken by myself. EXTREMITIES: Showed that both hands are still somewhat swollen. She cannot get her ring off her finger. There is a little puffiness on the dorsum of the hand as well. LABORATORY DATA: White count today is 14.43. Hemoglobin is 13. Platelets 266,000. Sed rate done yesterday was mildly elevated at 30. Electrolytes today showed sodium 139, potassium 3.7, chloride 109, bicarbonate 22. BUN was 30 with a creatinine of 0.83. Liver functions were normal. Total protein was decreased to 5.6 and albumin was 2.0. The hypersensitivity pneumonitis profile, KALEN, and rheumatoid factor are all pending and likely will not be back for a few days. Echocardiogram showed grade 1 diastolic dysfunction. Otherwise, it was unremarkable. IMPRESSION: 1. Shortness of breath, etiology to be determined. 2. Small pleural effusions, right greater than left. 3. Right middle lobe and right lower lobe infiltrate. 4. Possible interstitial lung disease. 5. Mild mediastinal and hilar adenopathy. COMMENTS AND RECOMMENDATIONS: The patient seems clinically about the same. She does have a sinus tachycardia. The reason for that is not clear. She does not seem in any duress. The CT angio showed no pulmonary emboli. She has been ordered some metoprolol for this. Pulmonary function tests were ordered. Those results are still pending. At some point in time, we may need to decide whether we want to give her a steroid trial or not. This would be of course presuming she does not improve with the antibiotic therapy.
[2018-04-24] MEDS ORDERED: METOPROLOL TARTRATE 25 MG TAB PO STA (09:00)
[2018-04-24 11:49] VITALS: BP 138/79; PULSE 121; TEMP 37; O2SAT 93
--- NOTE | 2018-04-24 15:22 | Hospitalist Progress Note ---
Hospitalist Progress Note Date of Service Apr 24, 2018. Subjective Pt evaluation today including: conversation w/ patient, conversation w/ senior safety management consultant (Cardiology) Pt does still feel dyspneic with exertion, but slightly improved today. Minimal dry cough. Remains with what turns out to be an ectopic atrial tachycardia persistently on telemetry not improved with increasing doses of beta -bonnie today. I discussed the case with cardiology. Patient denies chest pain. She still feels quite fatigued. Her hand pain was improved with taking naproxen yesterday evening and she did not know to ask for it again today but is still having pain in the hands right greater than left. Constitutional: No fever Cardiovascular: + edema (Still with swelling in the ankles) Abdomen: + diarrhea (Occasional loose stool) All Other Systems: Reviewed and Negative Objective Vital Signs Date Time Temp Pulse Resp B/P (MAP) Pulse Ox O2 Delivery O2 Flow Rate FiO2 04/24/18 11:49 37.0 121 18 138/79 (98) 93 Room Air 04/24/18 08:17 37.0 131 19 145/73 (97) 91 04/24/18 08:00 Room Air 04/24/18 04:00 Room Air 04/24/18 03:14 36.7 117 17 125/69 (87) 95 Room Air 04/24/18 00:02 Room Air 04/23/18 23:22 37.1 116 17 150/74 (99) 92 Room Air 04/23/18 23:22 37.1 116 17 150/74 (99) 92 Room Air 04/23/18 20:26 36.9 111 18 148/73 (98) 91 Room Air 04/23/18 20:00 Room Air 04/23/18 16:39 37.4 122 18 126/75 (92) 93 Room Air 04/23/18 16:00 98 Room Air Physical Exam General Appearance: WD/WN, no apparent distress Eyes: normal inspection, sclerae normal ENT: hearing grossly normal Neck: trachea midline Respiratory/Chest: no respiratory distress, no accessory muscle use, + crackles (Fine crackles to the mid lungs bilaterally) Cardiovascular: no murmur, + tachycardia (With regular rhythm) Abdomen: normal bowel sounds, non tender, soft, no organomegaly, no pulsatile mass Extremities: + swelling (Trace pitting edema in the ankles bilaterally), + pertinent finding (Right middle and index PIP joints with tenderness, otherwise no tenderness to palpation in the hands) Neurologic/Psychiatric: no motor/sensory deficits, alert, normal mood/affect, oriented x 3 Laboratory Results Last 24 Hours Test 04/23/18 16:39 04/23/18 20:33 04/24/18 05:51 04/24/18 07:23 Bedside Glucose 113 mg/dl 175 mg/dl 125 mg/dl White Blood Count 14.43 K/uL Red Blood Count 4.36 M/uL Hemoglobin 13.0 g/dL Hematocrit 39.1 % Mean Corpuscular Volume 89.7 fL Mean Corpuscular Hemoglobin 29.8 pg Mean Corpuscular Hemoglobin Concent 33.2 g/dl Platelet Count 266 K/uL Mean Platelet Volume 9.6 fL Neutrophils (%) (Auto) 76.7 % Lymphocytes (%) (Auto) 8.3 % Monocytes (%) (Auto) 8.2 % Eosinophils (%) (Auto) 5.4 % Basophils (%) (Auto) 0.3 % Neutrophils # (Auto) 11.06 K/uL Lymphocytes # (Auto) 1.20 K/uL Monocytes # (Auto) 1.19 K/uL Eosinophils # (Auto) 0.78 K/uL Basophils # (Auto) 0.04 K/uL RDW Standard Deviation 49.3 fL RDW Coefficient of Variation 15.0 % Immature Granulocyte % (Auto) 1.1 % Immature Granulocyte # (Auto) 0.16 K/uL Sodium Level 139 mmol/L Potassium Level 3.7 mmol/L Chloride Level 109 mmol/L Carbon Dioxide Level 22 mmol/L Anion Gap 9.0 mmol/L Blood Urea Nitrogen 30 mg/dl Creatinine 0.83 mg/dl Est Creatinine Clear Calc Drug Dose 47.3 ml/min Estimated GFR () 74.0 Estimated GFR (Non- 63.9 BUN/Creatinine Ratio 36.2 Random Glucose 117 mg/dl Calcium Level 7.7 mg/dl Magnesium Level 2.1 mg/dl Total Bilirubin 0.3 mg/dl Direct Bilirubin < 0.1 mg/dl Aspartate Amino Transf (AST/SGOT) 36 U/L Alanine Aminotransferase (ALT/SGPT) 23 U/L Alkaline Phosphatase 89 U/L Total Protein 5.6 gm/dl Albumin 2.0 gm/dl Test 04/24/18 11:25 Bedside Glucose 158 mg/dl Assessment and Plan This patient is an 87 y/o female with a history of HTN, DM 2, hyperlipidemia, who was admitted with worsening shortness of breath, peripheral edema, with suspected acute diastolic CHF as well as right middle and lower lobe pneumonias. Also with acute hypoxic respiratory failure. Dyspnea/pneumonia/sepsis POA/acute hypoxic respiratory failure-with tachycardia , tachypnea, leukocytosis, and pneumonia seen on CT chest-meets criteria for sepsis. She was hypoxic upon arrival and is now weaned off of oxygen. She received 1 dose of IV Lasix in the ER for suspected CHF. She was also started on antibiotics with Rocephin and azithromycin. CT angiogram negative for PE. Venous Doppler of the lower extremities negative for DVT. Afebrile here, with profound fatigue for the last 2 weeks-question if was having fevers at home versus fatigue from atrial tachycardia? Some component of acute on chronic diastolic CHF is contributing to her presentation as well as below. 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 ProBNP is normal for her age. But likely that she has been having this intermittent atrial tachycardia which in the setting of diastolic dysfunction could lead to volume overload with her peripheral edema and pulmonary edema. I believe her CT chest findings are more consistent with infectious process rather than pulmonary edema but likely a component of both. She received 1 dose of IV Lasix in the ER. -No further Lasix to be given -Continue to monitor I's and O's, daily weights -Optimize blood pressure control -Eventually restart her HCTZ from home HTN/ectopic atrial tachycardia-likely secondary to acute infectious pulmonary process. Titrating up metoprolol and still tachycardic in the 120s-130s at times. -Consult cardiology-this is not sinus tachycardia but rather an ectopic atrial tachycardia but seems to be asymptomatic although possibly this led to some acute on chronic diastolic CHF as above -Replaced home bisoprolol with metoprolol-we will increase to 25 mg p.o. every 6 hours today and titrate up as needed -Continue to monitor on telemetry -Holding HCTZ from home -Check ECG again now to get a closer look at her P-wave DMII: stable, Hgb A1c here is 7.0%, well controlled, on metformin only at home -Hold home metformin given recent IV contrast dye -Accu-Cheks and sliding scale insulin for now Hyperlipidemia: stable, continue home statin, ASA Hand pain and swelling/peripheral edema-treated and pain with NSAIDs as an outpatient. Hand x-rays consistent with osteoarthritis. However, swelling of the hands and ankles/feet, also with low albumin and low total protein. ESR normal for her age at 31 -Obtain UA to look for proteinuria -continue naproxen as needed for pain Prophylaxis-Lovenox SQ Disposition-remain on telemetry
[2018-04-24 16:49] VITALS: BP 148/79; PULSE 120; TEMP 37.1; O2SAT 93
--- NOTE | 2018-04-24 17:26 | Cardiology Consultation ---
Cardiology Consultation Date of Consultation: Apr 24, 2018. Requesting Physician: Belinda Reason for Consultation: Tachycardia Pt evaluation today including: conversation w/ patient, conversation w/ family , physical exam, chart review, lab review, review of studies, review of inpatient medication list, conversation w/ attending History of Present Illness Patient is an 87-year-old woman admitted with breathing difficulty of short duration. Her evaluation to date has suggested an infectious process. She is being treated for pneumonia. The patient states that for several days she was more short of breath. This coincided with some peripheral edema in her lower extremities and hands. She has also been suffering with pain primarily in the right hand but more recently in the left as well. She did not report overt fevers or chills. She does not report a cough. He states that up until recently she was very active performing housework at home. She did not have any notable limitations with activity such as dyspnea or chest pain. Specifically, she has not been aware of racing heartbeats or palpitations. She has not report dizziness or lightheadedness. She cannot recall suffering a syncopal episode. In the hospital the patient was noted to have periods of tachycardia. She was not aware of any palpitations or tachycardia. Overall she states that her condition is minimally improved since admission with the exception of her breathing. This appears to be better. She is less short of breath with a mild activity she can perform here in the hospital room. Past Medical/Surgical History Diabetes mellitus Hypertension Hyperlipidemia Family History Patient reports no known family medical history. Patient does report a daughter with a rapid heartbeat for which she takes medications. This is of unknown type No family history of premature coronary disease Social History Smoking Status: Never Smoker History of Alcohol Use: No Patient currently lives independently. She did previously work at [employer] Per [facility]. She feels that her lower extremity edema is much improved. She continues to have bilateral hand pain All Other Systems: Reviewed and Negative Allergies Coded Allergies: No Known Allergies (Unverified , 04/22/18) Medications Current Inpatient Medications Medications (Trade) Dose Ordered Sig/Cathy Route Start Time Stop Time Status Last Admin Dose Admin Ioversol (Optiray 320) 125 ml UD PRN IV 04/22/18 16:30 04/26/18 16:29 Enoxaparin Sodium (Lovenox Inj) 40 mg Q24H SC 04/22/18 22:00 05/22/18 21:59 04/23/18 20:41 40 MG Acetaminophen (Tylenol Tab) 650 mg Q4H PRN PO 04/22/18 18:30 05/22/18 18:29 Magnesium Hydroxide (Milk Of Magnesia Susp) 30 ml Q12H PRN PO 04/22/18 18:30 05/22/18 18:29 Ondansetron HCl (Zofran Inj) 4 mg Q6H PRN IV 04/22/18 18:30 05/22/18 18:29 Aspirin (Ecotrin Tab) 81 mg DAILY PO 04/23/18 09:00 05/23/18 08:59 04/24/18 08:07 81 MG Potassium Chloride (Klor-Con M10) 10 meq DAILY PO 04/23/18 09:00 05/23/18 08:59 04/24/18 08:07 10 MEQ Simvastatin (Zocor Tab) 10 mg HS PO 04/22/18 21:00 05/22/18 20:59 04/23/18 20:40 10 MG Naproxen (Naprosyn Tab) 250 mg BID PRN PO 04/22/18 18:30 05/22/18 18:29 Ceftriaxone Sodium 1 gm/ Dextrose 50 ml @ 100 mls/hr Q24H IV 04/23/18 00:00 04/30/18 00:00 04/23/18 23:38 100 MLS/HR Azithromycin 250 mg/Dextrose 252.5 ml @ 125 mls/hr Q24H IV 04/24/18 08:00 05/01/18 07:59 04/24/18 08:07 125 MLS/HR Insulin Aspart (novoLOG ASPART) SLIDING SCALE If C... ACHS SC 04/23/18 11:00 05/23/18 10:59 04/24/18 12:56 2 UNITS Glucose (Glucose 40% Gel) 15-30 GRAMS 15 GRAMS... UD PRN PO 04/23/18 08:15 05/23/18 08:14 Glucose (Glucose Chew Tab) 4-8 Tablets 4 Tabl... UD PRN PO 04/23/18 08:15 05/23/18 08:14 Dextrose (Dextrose 50% 50ML Syringe) 25-50ML 25ML FOR ... UD PRN IV 04/23/18 08:15 05/23/18 08:14 Glucagon (Glucagon Inj) 1 mg UD PRN SQ 04/23/18 08:15 05/23/18 08:14 Carbohydrates (Carbohydrates For Hypoglycemia) 15-30 GRAMS 15 grams if BSG 54-69... UD PRN PO 04/23/18 08:15 05/23/18 08:14 Metoprolol Tartrate (Lopressor Tab) 25 mg QID PO 04/24/18 13:00 05/23/18 20:59 04/24/18 12:54 25 MG Physical Exam Vital Signs Past 12 Hours Date Time Temp Pulse Resp B/P (MAP) Pulse Ox O2 Delivery O2 Flow Rate FiO2 04/24/18 16:49 37.1 120 18 148/79 (102) 93 Room Air 04/24/18 11:49 37.0 121 18 138/79 (98) 93 Room Air 04/24/18 08:17 37.0 131 19 145/73 (97) 91 04/24/18 08:00 Room Air She is alert and oriented x3. Mood affect appear normal. She answered all questions appropriately. HEENT: Sclerae are anicteric. Pupils are equal and reactive to light and accommodation. Extraocular movements were intact. Neuro: Cranial nerves intact Neck: Examination of the submandibular region did not reveal any significant lymphadenopathy. Carotids are palpable bilaterally and free of bruits on auscultation. There was no evidence of jugular venous distention. The thyroid was not enlarged. Lungs: Lungs are clear to auscultation bilaterally. There are no rales wheezes or rhonchi. She has normal respiratory effort without use of accessory muscles. There is normal pulmonary excursion. Cardiac: The rhythm was regular but fast. S1 and S2 were normal. There are no murmurs on examination. The PMI was not markedly displaced on palpation. Abdomen: The abdomen was soft and nontender. Extremities: Patient has bilateral radial pulses that are equal in intensity. There is no evidence cyanosis or clubbing. Mild edema in the lower extremities and hands. Skin: There are no rashes noted on examination today. Data Laboratory Results: Last 24 Hours Test 04/23/18 20:33 04/24/18 05:51 04/24/18 07:23 04/24/18 11:25 Bedside Glucose 175 mg/dl 125 mg/dl 158 mg/dl White Blood Count 14.43 K/uL Red Blood Count 4.36 M/uL Hemoglobin 13.0 g/dL Hematocrit 39.1 % Mean Corpuscular Volume 89.7 fL Mean Corpuscular Hemoglobin 29.8 pg Mean Corpuscular Hemoglobin Concent 33.2 g/dl Platelet Count 266 K/uL Mean Platelet Volume 9.6 fL Neutrophils (%) (Auto) 76.7 % Lymphocytes (%) (Auto) 8.3 % Monocytes (%) (Auto) 8.2 % Eosinophils (%) (Auto) 5.4 % Basophils (%) (Auto) 0.3 % Neutrophils # (Auto) 11.06 K/uL Lymphocytes # (Auto) 1.20 K/uL Monocytes # (Auto) 1.19 K/uL Eosinophils # (Auto) 0.78 K/uL Basophils # (Auto) 0.04 K/uL RDW Standard Deviation 49.3 fL RDW Coefficient of Variation 15.0 % Immature Granulocyte % (Auto) 1.1 % Immature Granulocyte # (Auto) 0.16 K/uL Sodium Level 139 mmol/L Potassium Level 3.7 mmol/L Chloride Level 109 mmol/L Carbon Dioxide Level 22 mmol/L Anion Gap 9.0 mmol/L Blood Urea Nitrogen 30 mg/dl Creatinine 0.83 mg/dl Est Creatinine Clear Calc Drug Dose 47.3 ml/min Estimated GFR () 74.0 Estimated GFR (Non- 63.9 BUN/Creatinine Ratio 36.2 Random Glucose 117 mg/dl Calcium Level 7.7 mg/dl Magnesium Level 2.1 mg/dl Total Bilirubin 0.3 mg/dl Direct Bilirubin < 0.1 mg/dl Aspartate Amino Transf (AST/SGOT) 36 U/L Alanine Aminotransferase (ALT/SGPT) 23 U/L Alkaline Phosphatase 89 U/L Total Protein 5.6 gm/dl Albumin 2.0 gm/dl Test 04/24/18 16:23 Bedside Glucose 164 mg/dl Imaging: Chest CT at the time admission suggested infection versus pulmonary edema. Small pleural effusions. Small reactive lymph nodes EKG: Normal sinus rhythm Telemetry reviewed: Normal sinus rhythm with rapid transition to more rapid atrial arrhythmia Assessment & Plan 1. Tachycardia: Patient's tachycardia appears to be an ectopic atrial rhythm. A review of her telemetry reveals a rapid transition from a normal sinus rhythm to a faster arrhythmia. A 12 lead EKG of the arrhythmia is not yet available but the P-wave morphology will be important in determining options for therapy. Rhythms of this nature can commonly be associated with pulmonary abnormalities. It is unclear if this is related to her acute illness. She has no symptoms so she may have been having episodes all along their only recently capture due to her admission. While these are generally a benign phenomenon there is a risk of developing a cardiomyopathy if she has prolonged high heart rates associated with this arrhythmia. I think the initial treatment is continuation of her beta-bonnie, perhaps at a higher dose. If that is ineffective a switch to a calcium channel bonnie would be the next step. Hopefully with improvement in her clinical condition we will see less of the arrhythmia. If this is not true in the aforementioned medications are ineffective we could try an antiarrhythmic, possibly dronedarone. No need for anticoagulation.
[2018-04-24 19:33] VITALS: BP 124/77; PULSE 115; TEMP 36.7; O2SAT 94
[2018-04-24] MEDS: SIMVASTATIN 10 MG TAB PO SCH (20:46)
[2018-04-24] MEDS: ENOXAPARIN 40 MG/0.4 ML SYR SC SCH (20:47)
[2018-04-24] MEDS ORDERED: METFORMIN HCL 500 MG TAB PO SCH (21:00)
--- NOTE | 2018-04-24 21:08 | PULMONARY FUNCTION TEST ---
Spirometry shows evidence of a mild obstructive pattern. Repeat study done following bronchodilators showed mild but not definitively significant improvement in function. Flow volume loops were consistent with spirometric findings: Lung volumes are within the limits of normal. Diffusion is severely reduced to 43% of predicted. However, when corrected for alveolar ventilation, it was 91%. Advise clinical correlation.
[2018-04-24 23:31] VITALS: BP 130/82; PULSE 114; TEMP 37.2; O2SAT 94
[2018-04-25] MEDS: CEFTRIAXONE SOD INJ 1 GM in DEXTROSE 5% ADD-VANTAGE 50ML 50 ML IV SCH ×2 (00:31→23:48)
[2018-04-25 03:56] VITALS: BP 128/78; PULSE 118; TEMP 36.8; O2SAT 91
[2018-04-25 06:12] LABS: BASO % 0.3 %; BASO ABS # 0.04 K/uL (0-0.2); HEMOGLOBIN 12.8 g/dL (12.0-16.0); IG# 0.19 K/uL (0.00-0.02); LYMPH % 7.9 %; LYMPH ABS # 1.17 K/uL (1.2-3.4); MEAN CELL VOLUME 89.2 fL (80-100); MEAN CORPUSCULAR HEMOGLOBIN 29.3 pg (25-34); MEAN CORPUSCULAR HGB CONC 32.8 g/dl (32-36); MEAN PLATELET VOLUME 9.6 fL (7.4-10.4); MONO % 10.1 %; NEUT % 76.4 %; PLATELET COUNT 249 K/uL (130-400); RED CELL DISTRIBUTION WIDTH SD 48.5 fL (36.4-46.3)
[2018-04-25] MEDS ORDERED: COUGH DROP (SUGAR FREE) LOZ 24 LOZ/1 BOX LOZ ONE (06:35)
[2018-04-25 06:54] LABS: CALCIUM 7.5 mg/dl (8.5-10.1); CREATININE 0.69 mg/dl (0.60-1.20); POTASSIUM 3.7 mmol/L (3.5-5.1); TOTAL PROTEIN 5.6 gm/dl (6.4-8.2)
[2018-04-25 07:01] VITALS: BP 129/70; PULSE 125; TEMP 36.6; O2SAT 91
[2018-04-25] MEDS ORDERED: COUGH DROP (SUGAR FREE) LOZ 24 LOZ/1 BOX LOZ PRN (07:15)
[2018-04-25] MEDS: METOPROLOL TARTRATE 25 MG TAB PO SCH ×2 (07:53→12:37)
[2018-04-25] MEDS: POTASSIUM CHLORIDE 10 MEQ TABCR PO SCH (07:54)
[2018-04-25] MEDS: ASPIRIN 81 MG ECTAB PO SCH (07:54)
[2018-04-25] MEDS: INSULIN ASPART 100 UNITS/ML 3 ML PEN SC SCH ×4 (07:56→21:00)
[2018-04-25] MEDS: AZITHROMYCIN IV 250 MG in DEXTROSE 5% 250ML 250 ML IV SCH (07:57)
--- NOTE | 2018-04-25 08:00 | DIAGNOSTIC IMAGING REPORT ---
CHEST 2 VIEWS ROUTINE CLINICAL HISTORY: 87 years-old Female presenting with Follow-up pulmonary edema and pneumonia. TECHNIQUE: PA and lateral views of the chest were obtained. COMPARISON: CTA from 04/22/2018. FINDINGS: Atherosclerosis of the aortic arch. Cardiac silhouette normal in size. No significant pulmonary vascular prominence. Basilar and peripheral predominant reticular and hazy opacity in the right lung base and minimally on the left. Bilateral small pleural effusions. No pneumothorax. Degenerative changes of the thoracic spine. Splenic arterial calcification noted. IMPRESSION: 1. Basilar and peripheral predominant hazy and reticular opacities greater on the right. Given the absence of pulmonary vascular prominence, this is felt less likely to represent pulmonary edema. Differential considerations include organizing pneumonia or chronic aspiration. 2. Bilateral small pleural effusions. Electronically signed by: Chencho Christian M.D. 04/25/2018 7:59 AM Dictated Date/Time: 04/25/2018 7:42 AM
--- NOTE | 2018-04-25 10:10 | PULMONARY PROGRESS NOTE ---
DATE: 04/25/2018 TIME: 9:35 a.m. SUBJECTIVE: The patient states she is less short of breath. She states she walked around the [place] 4 times yesterday with her family and she did not notice significant shortness of breath. She has persisted with tachycardia. Dr. Gabriel saw her yesterday from the cardiology division. She does not notice any palpitations. She is not coughing significantly. She is having loose bowel movements. This began overnight and she had 4 loose bowel movements. She believes nursing staff is aware of this. OBJECTIVE: GENERAL: The patient once again looks comfortable at rest. VITAL SIGNS: Current temperature 36.6. Maximum temperature 37.2. Cardiac rate currently is 127. The rhythm is regular. Blood pressure is 129/70. LUNGS: Lung de again reveal rales, greater on the right than the left. They are more dry in character. Oxygen saturation on room air was 90% at the time of my evaluation. ABDOMEN: Soft. It was nontender. Bowel sounds were present. EXTREMITIES: Showed trace edema. There was no cyanosis or clubbing. Her right hand is still bothering her. IMAGING DATA: Chest x-ray was done this morning. This shows persistence of bibasilar hazy and reticular opacities, greater on the right. Correlating with the CAT scan, I believe it is about the same. LABORATORY DATA: White count is 14.9, hemoglobin 12.8, platelets 249,000. Electrolytes show sodium 138, potassium 3.7, chloride 108, bicarbonate 22. BUN is 25 with a creatinine of 0.69. Blood sugar is 144. TSH was 3.94. The hypersensitivity pneumonitis profile, rheumatoid factor, and KALEN are all pending. IMPRESSIONS: 1. Right middle lobe and right lower lobe infiltrates - questionable pneumonia versus interstitial disease. 2. Small right pleural effusion and trace left effusion. 3. Mild mediastinal adenopathy. COMMENTS AND RECOMMENDATIONS: The patient says she feels a little better. She remains tachycardic. I am still not certain this represents bronchopneumonia. She is having diarrhea. Suggest stool for C. diff. She is on azithromycin, and ceftriaxone. She did have pulmonary function testing yesterday. There was a mild obstructive pattern. She also had a diffusion severely reduced to 43%. However, when corrected for alveolar ventilation, it was normal. Thus, it is difficult to rationalize this overall process. I am still concerned that she may have an interstitial disease of some type. In light of the obstructive pattern on pulmonary functions, we will order some bronchodilators. Postbronchodilator improvement was mild, approximately 10%. We will need to keep an eye on her heart rate with the bronchodilator.
[2018-04-25 11:30] VITALS: BP 136/69; PULSE 120; TEMP 36.8; O2SAT 93
[2018-04-25] MEDS: IPRATROPIUM BROMIDE/ALBUTEROL respimat INH INH SCH ×3 (13:58→21:10)
--- NOTE | 2018-04-25 14:15 | Progress Note ---
Progress Note Date of Service Apr 25, 2018. Progress Note ID Consult Dictated #[id number] A/P: 1. CAP -Continue abx, azithro can be changed to po -Will need 7 days total, if to be d/c prior to completion can be d/c on azithro 500mg po daily alone -Thank you
--- NOTE | 2018-04-25 14:44 | INFECT. DISEASE CONSULTATION ---
DATE OF CONSULTATION: 04/25/2018 HISTORY OF PRESENT ILLNESS: This is an 87-year-old female who is admitted with worsening shortness of breath. She did have a CAT scan as well as a chest x-ray which showed right lower lobe infiltrate. She is being followed by pulmonary and is being treated for obstructive disease as well. She did begin therapy with azithromycin and ceftriaxone and she is tolerating these well. Her initial white blood cell count was elevated at 16, this has improved somewhat. Her sedimentation rate is mildly elevated at 30. Urine cultures and blood cultures have been negative. She has been afebrile since admission. On my examination today, she is sitting up out of bed to chair. She states that her appetite is increasing. She states that her shortness of breath is decreasing. She denies any shortness of breath at rest. She denies any wheezing or cough. She denies any hemoptysis. Overall, she states she is feeling better. She denies any chest pain. She has no abdominal pain, nausea, vomiting, or diarrhea. Her remaining review of systems is unremarkable. PAST MEDICAL HISTORY: Significant for type 2 diabetes, hypertension, and hyperlipidemia. FAMILY HISTORY: Noncontributory. SOCIAL HISTORY: Negative for tobacco use, alcohol use, or drug use. ALLERGIES: She has no known drug allergies. MEDICATIONS: Albuterol, Lopressor, azithromycin, aspirin, potassium, Rocephin, Lovenox, Zocor, Tylenol, milk of magnesia, Zofran, and naproxen. PHYSICAL EXAMINATION: VITAL SIGNS: She is afebrile, pulse 120, respiratory rate 20, blood pressure 136/69, oxygen saturation is 93% on room air. GENERAL: She is awake, alert, and oriented x3. She is in no acute distress. HEENT: Mucous membranes are moist. Extraocular muscles are intact. CARDIOVASCULAR: Heart is regular. RESPIRATORY: Lungs are clear bilaterally. GASTROINTESTINAL: Abdomen is soft, nontender, nondistended. EXTREMITIES: There is no edema. SKIN: Without rash. LABORATORY DATA: CBC: White blood cell count 14.9, hemoglobin 12.8, platelets 249. Chemistry panel: Sodium 138, potassium 3.7, chloride 108, bicarbonate 22, BUN 25, creatinine 0.6, glucose 139. UA is negative. Blood cultures are negative. IMAGING: Chest x-ray today again shows right lower lobe infiltrate. ASSESSMENT AND PLAN: Community-acquired pneumonia versus aspiration. She does not appear to have any aspiration issues during her hospital stay. I would continue a course empirically for atypical pneumonia. She is currently on Rocephin and azithromycin. She can be continued on these. Her azithromycin can be transitioned to oral as she is tolerating a diet. I would give a total of 7 days. If she is to be discharged prior to a 7-day completion, she can be discharged on azithromycin 500 mg daily monotherapy. Thank you for this consultation.
[2018-04-25] MEDS: DILTIAZEM HCL 30 MG TAB PO SCH ×2 (16:49→21:10)
--- NOTE | 2018-04-25 17:14 | Cardiology Follow-Up ---
Subjective Date of Service: Apr 25, 2018. Pt evaluation today including: conversation w/ patient, physical exam, chart review, lab review, review of studies, review of inpatient medication list, conversation w/ attending History of Present Illness This morning the patient claims to be feeling well. She states she continues to have pain in both hands. She denied significant breathing trouble at rest. She is not aware of any palpitations or racing heartbeats. She has been up to the commode in her room without difficulty. She did not report dizziness or lightheadedness. Social History Smoking Status: Never Smoker History of Alcohol Use: No Review of Systems Cardiac: + edema (Still with swelling in the ankles) Per HPI. She feels that her lower extremity edema is much improved. She continues to have bilateral hand pain Objective Vital Signs Past 12 Hours Date Time Temp Pulse Resp B/P (MAP) Pulse Ox O2 Delivery O2 Flow Rate FiO2 04/25/18 16:00 Room Air 04/25/18 11:30 36.8 120 20 136/69 (91) 93 Room Air 04/25/18 09:00 Room Air 04/25/18 07:01 36.6 125 17 129/70 (89) 91 Room Air Last Recorded Weight-Kilograms: 73.600 Intake & Output 8-Hour Column 04/25/18 04/26/18 04/26/18 16:00 00:00 08:00 Intake Total 150 ml Balance 150 ml 24-Hour Column 04/26/18 08:00 Intake Total 150 ml Balance 150 ml Physical Exam She is alert and oriented x3. Mood affect appear normal. She answered all questions appropriately. HEENT: Sclerae are anicteric. Pupils are equal and reactive to light and accommodation. Extraocular movements were intact. Neuro: Cranial nerves intact Neck: Examination of the submandibular region did not reveal any significant lymphadenopathy. Carotids are palpable bilaterally and free of bruits on auscultation. There was no evidence of jugular venous distention. The thyroid was not enlarged. Lungs: Lungs are clear to auscultation bilaterally. There are no rales wheezes or rhonchi. She has normal respiratory effort without use of accessory muscles. There is normal pulmonary excursion. Cardiac: The rhythm was regular but fast. S1 and S2 were normal. There are no murmurs on examination. The PMI was not markedly displaced on palpation. Abdomen: The abdomen was soft and nontender. Extremities: Patient has bilateral radial pulses that are equal in intensity. There is no evidence cyanosis or clubbing. Mild edema in the lower extremities and hands. Skin: There are no rashes noted on examination today. Data Laboratory Results: Last 24 Hours Test 04/24/18 19:20 04/24/18 20:36 04/25/18 05:49 04/25/18 07:25 Urine Color YELLOW Urine Appearance CLOUDY Urine pH 5.0 Urine Specific [place] 1.025 Urine Protein NEG Urine Glucose (UA) NEG Urine Ketones NEG Urine Occult Blood NEG Urine Nitrite NEG Urine Bilirubin NEG Urine Urobilinogen NEG Urine Leukocyte Esterase NEG Urine WBC (Auto) 1-5 /hpf Urine RBC (Auto) 0-4 /hpf Urine Hyaline Casts (Auto) 1-5 /lpf Urine Epithelial Cells (Auto) 20-30 /lpf Urine Bacteria (Auto) NEG Bedside Glucose 216 mg/dl 144 mg/dl White Blood Count 14.90 K/uL Red Blood Count 4.37 M/uL Hemoglobin 12.8 g/dL Hematocrit 39.0 % Mean Corpuscular Volume 89.2 fL Mean Corpuscular Hemoglobin 29.3 pg Mean Corpuscular Hemoglobin Concent 32.8 g/dl Platelet Count 249 K/uL Mean Platelet Volume 9.6 fL Neutrophils (%) (Auto) 76.4 % Lymphocytes (%) (Auto) 7.9 % Monocytes (%) (Auto) 10.1 % Eosinophils (%) (Auto) 4.0 % Basophils (%) (Auto) 0.3 % Neutrophils # (Auto) 11.40 K/uL Lymphocytes # (Auto) 1.17 K/uL Monocytes # (Auto) 1.50 K/uL Eosinophils # (Auto) 0.60 K/uL Basophils # (Auto) 0.04 K/uL RDW Standard Deviation 48.5 fL RDW Coefficient of Variation 15.0 % Immature Granulocyte % (Auto) 1.3 % Immature Granulocyte # (Auto) 0.19 K/uL Sodium Level 138 mmol/L Potassium Level 3.7 mmol/L Chloride Level 108 mmol/L Carbon Dioxide Level 22 mmol/L Anion Gap 8.0 mmol/L Blood Urea Nitrogen 25 mg/dl Creatinine 0.69 mg/dl Est Creatinine Clear Calc Drug Dose 57.5 ml/min Estimated GFR () 91.4 Estimated GFR (Non- 78.8 BUN/Creatinine Ratio 36.4 Random Glucose 118 mg/dl Calcium Level 7.5 mg/dl Magnesium Level 2.2 mg/dl Total Bilirubin 0.3 mg/dl Direct Bilirubin 0.1 mg/dl Aspartate Amino Transf (AST/SGOT) 46 U/L Alanine Aminotransferase (ALT/SGPT) 28 U/L Alkaline Phosphatase 93 U/L Total Protein 5.6 gm/dl Albumin 2.0 gm/dl Thyroid Stimulating Hormone (TSH) 3.940 uIu/ml Test 04/25/18 11:26 04/25/18 16:26 Bedside Glucose 139 mg/dl 132 mg/dl EKG: Ectopic atrial tachycardia Telemetry reviewed: Persistent ectopic atrial tachycardia Assessment and Plan 1. Tachycardia: Patient is persistent tachycardia. The EKG obtained this morning suggested right atrial ectopic tachycardia. She has been on a beta- bonnie for nearly 24 hours without any significant response. I think would be reasonable to change therapy to a calcium channel bonnie to see if this is more efficacious. My hope is that as her clinical condition improves becomes less of an issue. However, it is unclear whether this is actually a chronic problem for her as she is entirely asymptomatic. The real concern even in the absence of symptoms is development of a tachycardia induced cardiomyopathy. If we cannot slow her rate or reduce the frequency of her tachycardia then we will need to be more aggressive, perhaps with antiarrhythmics or even catheter based therapy. Given the appearance of the P waves on the EKG this should be approachable in the right atrium. No indication for anticoagulation.
--- NOTE | 2018-04-25 18:07 | Hospitalist Progress Note ---
Hospitalist Progress Note Date of Service Apr 25, 2018. Subjective Pt evaluation today including: conversation w/ patient, physical exam, conversation w/ strategy planning consultant (Cardiology) Voiding: no voiding problems Patient having some diarrhea today at least 4 times. Feels that her shortness of breath is improved today. Only minimal dry cough. No abdominal pain. She remains afebrile. She is still in atrial tachycardia but her rates are slightly improved today in the 1 teens, however were higher than that yesterday and through the evening Respiratory: + problem reported (Mild sore throat) All Other Systems: Reviewed and Negative Objective Vital Signs Date Time Temp Pulse Resp B/P (MAP) Pulse Ox O2 Delivery O2 Flow Rate FiO2 04/25/18 16:00 Room Air 04/25/18 11:30 36.8 120 20 136/69 (91) 93 Room Air 04/25/18 09:00 Room Air 04/25/18 07:01 36.6 125 17 129/70 (89) 91 Room Air 04/25/18 03:56 36.8 118 17 128/78 (95) 91 Room Air 04/25/18 00:00 Room Air 04/24/18 23:31 37.2 114 17 130/82 (98) 94 Room Air 04/24/18 20:00 Room Air 04/24/18 19:33 36.7 115 20 124/77 (93) 94 Room Air Physical Exam General Appearance: WD/WN, no apparent distress Eyes: normal inspection, EOMI, sclerae normal ENT: hearing grossly normal, pharynx normal Neck: supple, no adenopathy, trachea midline Respiratory/Chest: no respiratory distress, no accessory muscle use, + crackles (At the right lower and middle lung de, also some at the left lower lung field, no wheezes or rhonchi) Cardiovascular: no murmur, + tachycardia (With regular rhythm) Abdomen: normal bowel sounds, non tender, soft, no organomegaly, no pulsatile mass Extremities: non-tender, + swelling (Trace pedal edema into the ankles; hands bilaterally still with mild swelling more so of the right PIP and MCP joints with tenderness, no erythema) Neurologic/Psychiatric: alert, normal mood/affect, oriented x 3 Skin: normal color, warm/dry, no rash Laboratory Results Last 24 Hours Test 04/24/18 19:20 04/24/18 20:36 04/25/18 05:49 04/25/18 07:25 Urine Color YELLOW Urine Appearance CLOUDY Urine pH 5.0 Urine Specific [place] 1.025 Urine Protein NEG Urine Glucose (UA) NEG Urine Ketones NEG Urine Occult Blood NEG Urine Nitrite NEG Urine Bilirubin NEG Urine Urobilinogen NEG Urine Leukocyte Esterase NEG Urine WBC (Auto) 1-5 /hpf Urine RBC (Auto) 0-4 /hpf Urine Hyaline Casts (Auto) 1-5 /lpf Urine Epithelial Cells (Auto) 20-30 /lpf Urine Bacteria (Auto) NEG Bedside Glucose 216 mg/dl 144 mg/dl White Blood Count 14.90 K/uL Red Blood Count 4.37 M/uL Hemoglobin 12.8 g/dL Hematocrit 39.0 % Mean Corpuscular Volume 89.2 fL Mean Corpuscular Hemoglobin 29.3 pg Mean Corpuscular Hemoglobin Concent 32.8 g/dl Platelet Count 249 K/uL Mean Platelet Volume 9.6 fL Neutrophils (%) (Auto) 76.4 % Lymphocytes (%) (Auto) 7.9 % Monocytes (%) (Auto) 10.1 % Eosinophils (%) (Auto) 4.0 % Basophils (%) (Auto) 0.3 % Neutrophils # (Auto) 11.40 K/uL Lymphocytes # (Auto) 1.17 K/uL Monocytes # (Auto) 1.50 K/uL Eosinophils # (Auto) 0.60 K/uL Basophils # (Auto) 0.04 K/uL RDW Standard Deviation 48.5 fL RDW Coefficient of Variation 15.0 % Immature Granulocyte % (Auto) 1.3 % Immature Granulocyte # (Auto) 0.19 K/uL Sodium Level 138 mmol/L Potassium Level 3.7 mmol/L Chloride Level 108 mmol/L Carbon Dioxide Level 22 mmol/L Anion Gap 8.0 mmol/L Blood Urea Nitrogen 25 mg/dl Creatinine 0.69 mg/dl Est Creatinine Clear Calc Drug Dose 57.5 ml/min Estimated GFR () 91.4 Estimated GFR (Non- 78.8 BUN/Creatinine Ratio 36.4 Random Glucose 118 mg/dl Calcium Level 7.5 mg/dl Magnesium Level 2.2 mg/dl Total Bilirubin 0.3 mg/dl Direct Bilirubin 0.1 mg/dl Aspartate Amino Transf (AST/SGOT) 46 U/L Alanine Aminotransferase (ALT/SGPT) 28 U/L Alkaline Phosphatase 93 U/L Total Protein 5.6 gm/dl Albumin 2.0 gm/dl Thyroid Stimulating Hormone (TSH) 3.940 uIu/ml Test 04/25/18 11:26 04/25/18 16:26 Bedside Glucose 139 mg/dl 132 mg/dl Assessment and Plan This patient is an 87 y/o female with a history of HTN, DM 2, hyperlipidemia, who was admitted with worsening shortness of breath, peripheral edema, with suspected acute diastolic CHF as well as right middle and lower lobe pneumonias. Also with acute hypoxic respiratory failure. Dyspnea/pneumonia/sepsis POA/acute hypoxic respiratory failure-with tachycardia , tachypnea, leukocytosis, and pneumonia seen on CT chest-meets criteria for sepsis. She was hypoxic upon arrival and is now weaned off of oxygen. She received 1 dose of IV Lasix in the ER for suspected CHF. She was also started on antibiotics with Rocephin and azithromycin. CT angiogram negative for PE. Venous Doppler of the lower extremities negative for DVT. Afebrile here, with profound fatigue for the last 2 weeks-question if was having fevers at home versus fatigue from atrial tachycardia? Some component of acute on chronic diastolic CHF is contributing to her presentation as well as below. With some eosinophilia as well as monocytosis-question hypersensitivity pneumonia versus atypical infection? Repeat chest x-ray 04/25 today appears similar to previous -Consult infectious disease-appreciate consultation-recommend to treat for atypical pneumonia with continued dosing of azithromycin for 7 day course, along with Rocephin while inpatient -Continue telemetry monitoring -Follow CBC -With reactive mediastinal lymphadenopathy on the right-seems to have an infection-do recommend follow-up CT chest in 1 month to ensure resolution of infiltrate and lymphadenopathy -Appreciate Pulm consultation-recommend PFTs-completed and show mild obstructive pattern with not significant reversibility with bronchodilator, normal corrected DLCO -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 ProBNP is normal for her age. But likely that she has been having this intermittent atrial tachycardia which in the setting of diastolic dysfunction could lead to volume overload with her peripheral edema and pulmonary edema. I believe her CT chest findings are more consistent with infectious process rather than pulmonary edema but likely a component of both. She received 1 dose of IV Lasix in the ER. -No further Lasix to be given -Continue to monitor I's and O's, daily weights -Optimize blood pressure control -Eventually restart her HCTZ from home HTN/ectopic atrial tachycardia-likely secondary to acute infectious pulmonary process. Discuss case with cardiology-this seems to be a right ectopic atrial tachycardia -Started on metoprolol and still tachycardic in the 110s today -Add on diltiazem 30 mg p.o. 4 times daily -Holding home bisoprolol -Continue to monitor on telemetry -Holding HCTZ from home -May end up needing antiarrhythmic versus ablation -Appreciate cardiology consultation DMII: stable, Hgb A1c here is 7.0%, well controlled, on metformin only at home -Hold home metformin given recent IV contrast dye -Accu-Cheks and sliding scale insulin for now Hyperlipidemia: stable, continue home statin, ASA Hand pain and swelling/peripheral edema-treated and pain with NSAIDs as an outpatient. Hand x-rays consistent with osteoarthritis. However, swelling of the hands and ankles/feet, also with low albumin and low total protein. Urinalysis with no proteinuria ESR normal for her age at 31 -continue naproxen but changed to a scheduled dose as patient keeps forgetting to ask for the dose Prophylaxis-Lovenox SQ Disposition-remain on telemetry and remain in hospital until atrial tachycardia is resolved
[2018-04-25 19:49] VITALS: BP 135/72; PULSE 114; TEMP 36.8; O2SAT 95
[2018-04-25] MEDS: NAPROXEN 250 MG TAB PO SCH (19:50)
[2018-04-25] MEDS: ENOXAPARIN 40 MG/0.4 ML SYR SC SCH (21:10)
[2018-04-25] MEDS: SIMVASTATIN 10 MG TAB PO SCH (21:10)
[2018-04-25] MEDS ORDERED: DiphenhydrAMINE HCL 50 MG/ML VIAL IV STA (23:52)
[2018-04-26] VITALS (7 sets, daily range): BP systolic 118–144; BP diastolic 62–73; PULSE 93–128; TEMP 36.3–37.2; O2SAT 90–96
[2018-04-26 06:24] LABS: HEMOGLOBIN 11.9 g/dL (12.0-16.0); MEAN CORPUSCULAR HGB CONC 32.2 g/dl (32-36); MEAN PLATELET VOLUME 9.6 fL (7.4-10.4); PLATELET COUNT 244 K/uL (130-400); RED CELL DISTRIBUTION WIDTH CV 15.1 % (11.5-14.5); RED CELL DISTRIBUTION WIDTH SD 49.8 fL (36.4-46.3); WHITE BLOOD COUNT 13.59 K/uL (4.8-10.8)
[2018-04-26] MEDS: DILTIAZEM HCL 30 MG TAB PO SCH ×3 (06:35→17:02)
[2018-04-26 06:52] LABS: CALCIUM 7.4 mg/dl (8.5-10.1); CREATININE 0.9 mg/dl (0.60-1.20); POTASSIUM 3.7 mmol/L (3.5-5.1)
[2018-04-26] MEDS: IPRATROPIUM BROMIDE/ALBUTEROL respimat INH INH SCH ×4 (08:07→21:12)
[2018-04-26] MEDS: ASPIRIN 81 MG ECTAB PO SCH (08:08)
[2018-04-26] MEDS: POTASSIUM CHLORIDE 10 MEQ TABCR PO SCH (08:08)
[2018-04-26] MEDS: NAPROXEN 250 MG TAB PO SCH ×2 (08:08→21:14)
[2018-04-26] MEDS: AZITHROMYCIN 250 MG TAB PO SCH (08:08)
[2018-04-26] MEDS: INSULIN ASPART 100 UNITS/ML 3 ML PEN SC SCH ×4 (08:09→21:17)
--- NOTE | 2018-04-26 09:24 | PULMONARY PROGRESS NOTE ---
DATE: 04/26/2018 TIME: 8:15 a.m. SUBJECTIVE: The patient's breathing feels better. She states yesterday she walked farther and longer than she did the prior day and she did so without shortness of breath. She had a mild cough productive of some sputum overnight. Because it was dark, she could not see the sputum. This morning, she once again had a large amount of diarrhea. There was a stool C. diff ordered, but unfortunately someone had removed the half from the commode. Thus, it was not obtained. The pain in her hands has improved and the edema in her hands has improved as well. OBJECTIVE: GENERAL: The patient appears comfortable. VITAL SIGNS: Temperature was 36.3. She has not had any fevers of significance. Her maximum temperature this hospital stay has been 37.5. The cardiac rate remains elevated. It is 135 at present. The rhythm is regular. Blood pressure 144/73. LUNGS: Auscultation of the lung de reveals no change in the bilateral rales heard posteriorly, greater on the right than the left. Oxygen saturation this morning was 90% on room air. EXTREMITIES: Showed no cyanosis or clubbing. The hands are definitely less swollen than they had been previously. No lower leg edema. LABORATORY DATA: White count today is 13.59. Hemoglobin 11.9. Platelets 244,000. Electrolytes show sodium 139, potassium 3.7, chloride 109, bicarbonate 21. BUN was 30 with a creatinine of 0.9. Rheumatoid factor, KALEN, and hypersensitivity pneumonitis profiles are still pending. IMPRESSIONS: 1. Infiltrate, right middle lobe and right lower lobe. 2. Rule out interstitial lung disease. 3. Small pleural effusions. 4. Adenopathy. 5. Tachyarrhythmia. 6. Diarrhea. COMMENTS AND RECOMMENDATIONS: Clinically, the patient seems to be improving. The C. diff is still pending as noted. I suspect the naproxen is responsible for why she has noticed the improvement in her hands. We did start her with a Combivent Respimat yesterday. It remains to be seen if this is helping or not or if it may be increasing her heart rate. She did have the tachycardia prior to initiating the inhaler. She obviously will ultimately need followup x-ray and CAT scan. I would be surprised if this is entirely related to community acquired pneumonia.
[2018-04-26] MEDS ORDERED: ZOLPIDEM TARTRATE 5 MG TAB PO PRN (17:30)
--- NOTE | 2018-04-26 17:33 | Hospitalist Progress Note ---
Hospitalist Progress Note Date of Service Apr 26, 2018. Subjective Pt evaluation today including: conversation w/ patient, conversation w/ [employer] portal consultant (Broadband Technician) Feeling less SOB todya. Tele remains with rapid atrial tachycardia in the 120s- 130s at times. Denies CP. Hand pain is improved All Other Systems: Reviewed and Negative Objective Vital Signs Date Time Temp Pulse Resp B/P (MAP) Pulse Ox O2 Delivery O2 Flow Rate FiO2 04/26/18 16:08 36.7 121 20 132/73 (92) 92 Room Air 04/26/18 11:41 36.5 120 18 124/72 (89) 90 Room Air 04/26/18 08:41 Room Air 04/26/18 07:15 36.3 128 18 144/73 (96) 90 Room Air 04/26/18 03:52 36.6 93 19 132/67 (88) 96 Room Air 04/26/18 00:50 Room Air 04/26/18 00:02 36.9 93 18 118/62 (80) 90 Room Air 04/25/18 20:00 Room Air 04/25/18 19:49 36.8 114 18 135/72 (93) 95 Room Air Physical Exam General Appearance: WD/WN, no apparent distress Eyes: normal inspection, sclerae normal ENT: hearing grossly normal Neck: trachea midline Respiratory/Chest: no respiratory distress, no accessory muscle use, + crackles (at right lower and middle lung de) Cardiovascular: + tachycardia (with reg rhythm) Abdomen: normal bowel sounds, non tender, soft Extremities: normal inspection, no pedal edema, no calf tenderness, + pertinent finding (hands with less TTP over PIP joint of middle ifnger, less swelling) Neurologic/Psychiatric: alert, normal mood/affect, oriented x 3 Skin: normal color, warm/dry, no rash Laboratory Results Last 24 Hours Test 04/25/18 20:03 04/26/18 05:50 04/26/18 07:15 04/26/18 10:57 Bedside Glucose 174 mg/dl 112 mg/dl 173 mg/dl White Blood Count 13.59 K/uL Red Blood Count 4.11 M/uL Hemoglobin 11.9 g/dL Hematocrit 37.0 % Mean Corpuscular Volume 90.0 fL Mean Corpuscular Hemoglobin 29.0 pg Mean Corpuscular Hemoglobin Concent 32.2 g/dl RDW Standard Deviation 49.8 fL RDW Coefficient of Variation 15.1 % Platelet Count 244 K/uL Mean Platelet Volume 9.6 fL Sodium Level 139 mmol/L Potassium Level 3.7 mmol/L Chloride Level 109 mmol/L Carbon Dioxide Level 21 mmol/L Anion Gap 9.0 mmol/L Blood Urea Nitrogen 30 mg/dl Creatinine 0.90 mg/dl Est Creatinine Clear Calc Drug Dose 44.2 ml/min Estimated GFR () 67.1 Estimated GFR (Non- 57.9 BUN/Creatinine Ratio 33.6 Random Glucose 114 mg/dl Calcium Level 7.4 mg/dl Magnesium Level 2.3 mg/dl Test 04/26/18 16:21 Bedside Glucose 133 mg/dl Assessment and Plan This patient is an 87 y/o female with a history of HTN, DM 2, hyperlipidemia, who was admitted with worsening shortness of breath, peripheral edema, with suspected acute diastolic CHF as well as right middle and lower lobe pneumonias. Also with acute hypoxic respiratory failure. Dyspnea/pneumonia/sepsis POA/acute hypoxic respiratory failure-with tachycardia , tachypnea, leukocytosis, and pneumonia seen on CT chest-meets criteria for sepsis. She was hypoxic upon arrival and is now weaned off of oxygen. She received 1 dose of IV Lasix in the ER for suspected CHF. She was also started on antibiotics with Rocephin and azithromycin. Having some improvement in respiratory symptoms. CT angiogram negative for PE. Venous Doppler of the lower extremities negative for DVT. Afebrile here, with profound fatigue for the last 2 weeks-question if was having fevers at home versus fatigue from atrial tachycardia? Some component of acute on chronic diastolic CHF is contributing to her presentation as well as below. With some eosinophilia as well as monocytosis-question hypersensitivity pneumonia versus atypical infection? Perhaps a hypersensitivity reaction to the Meloxicam from 2 weeks ago when symptoms started? Repeat chest x-ray 04/25 today appears similar to previous -Consult infectious disease-appreciate consultation-recommend to treat for atypical pneumonia with continued dosing of azithromycin for 7 day course, along with Rocephin while inpatient -Continue telemetry monitoring -Follow CBC -With reactive mediastinal lymphadenopathy on the right-seems to have an infection-do recommend follow-up CT chest in 1 month to ensure resolution of infiltrate and lymphadenopathy -Appreciate Pulm consultation-recommend PFTs-completed and show mild obstructive pattern with not significant reversibility with bronchodilator, normal corrected DLCO -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 ProBNP is normal for her age. But likely that she has been having this intermittent atrial tachycardia which in the setting of diastolic dysfunction could lead to volume overload with her peripheral edema and pulmonary edema. I believe her CT chest findings are more consistent with infectious process rather than pulmonary edema but likely a component of both. She received 1 dose of IV Lasix in the ER. -No further Lasix to be given -Continue to monitor I's and O's, daily weights -Optimize blood pressure control -Eventually restart her HCTZ from home HTN/ectopic atrial tachycardia-likely secondary to acute infectious pulmonary process. Discuss case with cardiology-this seems to be a right ectopic atrial tachycardia Continues today with rates in the 120s despite diltiazem 30mg qid -Started on metoprolol and still tachycardic in the 110s today -increase diltiazem to 60 mg p.o. 4 times daily -dc'd home bisoprolol -Continue to monitor on telemetry -Holding HCTZ from home -May end up needing antiarrhythmic versus ablation -Appreciate cardiology consultation DMII: stable, Hgb A1c here is 7.0%, well controlled, on metformin only at home -Hold home metformin given recent IV contrast dye -Accu-Cheks and sliding scale insulin for now Hyperlipidemia: stable, continue home statin, ASA Hand pain and swelling/peripheral edema-treated and pain with NSAIDs as an outpatient. Hand x-rays consistent with osteoarthritis. However, swelling of the hands and ankles/feet, also with low albumin and low total protein. Urinalysis with no proteinuria ESR normal for her age at 31 -continue naproxen bid which is helping Prophylaxis-Lovenox SQ Disposition-remain on telemetry and remain in hospital until atrial tachycardia is resolved
[2018-04-26] MEDS: SIMVASTATIN 10 MG TAB PO SCH (21:13)
[2018-04-26] MEDS: ENOXAPARIN 40 MG/0.4 ML SYR SC SCH (21:14)
[2018-04-26] MEDS: DILTIAZEM HCL 60 MG TAB PO SCH (21:52)
[2018-04-27] VITALS (7 sets, daily range): BP systolic 112–150; BP diastolic 56–73; PULSE 72–125; TEMP 36.3–37; O2SAT 90–94
[2018-04-27] MEDS: CEFTRIAXONE SOD INJ 1 GM in DEXTROSE 5% ADD-VANTAGE 50ML 50 ML IV SCH (01:18)
[2018-04-27] MEDS: INSULIN ASPART 100 UNITS/ML 3 ML PEN SC SCH ×4 (08:27→20:25)
[2018-04-27] MEDS: IPRATROPIUM BROMIDE/ALBUTEROL respimat INH INH SCH ×4 (08:29→20:19)
[2018-04-27] MEDS: DILTIAZEM HCL 60 MG TAB PO SCH ×4 (08:29→20:20)
[2018-04-27] MEDS: AZITHROMYCIN 250 MG TAB PO SCH (08:30)
[2018-04-27] MEDS: ASPIRIN 81 MG ECTAB PO SCH (08:30)
[2018-04-27] MEDS: POTASSIUM CHLORIDE 10 MEQ TABCR PO SCH (08:30)
[2018-04-27] MEDS: POLYETHYLENE (MIRALAX) 17 GM PACK PO SCH (09:00)
[2018-04-27] MEDS: SENNA 8.6 MG TAB PO SCH (09:00)
[2018-04-27] MEDS ORDERED: LOPERAMIDE HCL 2 MG CAP PO PRN (14:00)
--- NOTE | 2018-04-27 14:30 | PULMONARY PROGRESS NOTE ---
DATE: 04/27/2018 PULMONARY PROGRESS NOTE TIME: 2:00 p.m. SUBJECTIVE: The patient denies shortness of breath. She feels that her breathing is a little better each day. She is still having some loose bowel movements. The C. diff study was finally done and was negative as per nursing. She has persisted with tachycardia. Cardiology is seeing the patient. OBJECTIVE: GENERAL: The patient appears comfortable at rest. VITAL SIGNS: Temperature is 36.9. Maximum temperature in the past 24 hours was 37.2. CARDIOVASCULAR: Heart rate currently is 137. The rhythm is regular. Blood pressure was 117/73. CHEST: Auscultation of the lung de again reveals rales which are relatively dry, greater on the right than the left base. These have not changed despite antibiotic therapy. Saturation on room air is 94%. EXTREMITIES: Showed no cyanosis or clubbing. Her hands continue to look better than they did previously with diminished edema. LABORATORY DATA: Blood sugar today was 144. The rheumatoid factor, KALEN and hypersensitivity pneumonitis profile was still pending. IMPRESSIONS: 1. Right middle lobe and right lower lobe infiltrate. 2. Rule out interstitial disease. 3. Small pleural effusions. 4. Mild adenopathy. 5. Tachyarrhythmia. 6. Diarrhea. COMMENTS AND RECOMMENDATIONS: The case was discussed with Dr. Damico. The possibility of a hypersensitivity from NSAIDS was discussed. I think it is less likely. However, they did stop the naproxen. It will be curious to see if the patient again develops hand pain. In that event she may need low dose steroids. From a pulmonary perspective, she is stable. She needs to be followed up from the perspective of assuring that the infiltrates and adenopathy return to normalcy and if not then follow up as to the reasons why. NICKOLAS
--- NOTE | 2018-04-27 14:57 | Cardiology Follow-Up ---
Subjective Date of Service: Apr 27, 2018. Pt evaluation today including: conversation w/ patient, physical exam, chart review, lab review, review of studies, review of inpatient medication list, conversation w/ attending History of Present Illness This morning the patient claims to be feeling well. She was up in chair and had ambulated around her room without notable symptoms. The pain in her hands appears to have improved. Cough is improved. Breathing was reported as good. Not aware of any palpitations. No dizziness or lightheadedness. Social History Smoking Status: Never Smoker History of Alcohol Use: No Review of Systems Respiratory: + problem reported (Mild sore throat) Cardiac: + edema (Still with swelling in the ankles) Per HPI. She feels that her lower extremity edema is much improved. She continues to have bilateral hand pain Objective Vital Signs Past 12 Hours Date Time Temp Pulse Resp B/P (MAP) Pulse Ox O2 Delivery O2 Flow Rate FiO2 04/27/18 12:11 36.9 95 20 117/73 (88) 94 04/27/18 09:16 Room Air 04/27/18 07:57 36.8 125 20 150/71 (97) 90 04/27/18 04:04 Room Air 04/27/18 03:47 36.8 125 18 145/70 (95) 91 Room Air Last Recorded Weight-Kilograms: 74.200 Intake & Output 8-Hour Column 04/27/18 04/27/18 04/28/18 15:59 23:59 07:59 Intake Total 475 ml Balance 475 ml 24-Hour Column 04/28/18 07:59 Intake Total 475 ml Balance 475 ml Physical Exam She is alert and oriented x3. Mood affect appear normal. She answered all questions appropriately. HEENT: Sclerae are anicteric. Pupils are equal and reactive to light and accommodation. Extraocular movements were intact. Neuro: Cranial nerves intact Neck: Examination of the submandibular region did not reveal any significant lymphadenopathy. Carotids are palpable bilaterally and free of bruits on auscultation. There was no evidence of jugular venous distention. The thyroid was not enlarged. Lungs: Lungs are clear to auscultation bilaterally. There are no rales wheezes or rhonchi. She has normal respiratory effort without use of accessory muscles. There is normal pulmonary excursion. Cardiac: The rhythm was regular but fast. S1 and S2 were normal. There are no murmurs on examination. The PMI was not markedly displaced on palpation. Abdomen: The abdomen was soft and nontender. Extremities: Patient has bilateral radial pulses that are equal in intensity. There is no evidence cyanosis or clubbing. Mild edema in the lower extremities and hands. Skin: There are no rashes noted on examination today. Data Laboratory Results: Last 24 Hours Test 04/26/18 16:21 04/26/18 20:25 04/27/18 07:31 04/27/18 11:12 Bedside Glucose 133 mg/dl 193 mg/dl 134 mg/dl 144 mg/dl EKG: Ectopic atrial tachycardia Telemetry reviewed: Persistent tachycardia Assessment and Plan 1. Tachycardia: Persistent. She has been on escalating doses of a calcium channel bonnie. Hemodynamically she is doing quite well. No symptoms. I think we can try single dose of flecainide to see if it converts her rhythm. Otherwise I would continue her calcium channel bonnie at the higher dose over the course of the evening. If she has no response then I think a trial of antiarrhythmic such as amiodarone would be reasonable. Unfortunately, given her advanced age the amiodarone or dronedarone would seem to be the only viable options for treating this arrhythmia. Final option would be catheter based therapy.
[2018-04-27] MEDS ORDERED: FLECAINIDE ACETATE 100 MG TAB PO ONE (15:30)
--- NOTE | 2018-04-27 20:40 | Progress Note ---
Subjective Date of Service: Apr 27, 2018. Subjective Pt evaluation today including: conversation w/ patient, conversation w/ family (daughter at bedside), physical exam, chart review, lab review, review of studies (hand x-rays, CT chest, etc), conversation w/ philatelic consultant (pulmonary), review of inpatient medication list Pain: right hand but improving PO Intake: improving albeit slowly Voiding: no voiding problems tele with ongoing right atrial tachycardia, rates 120s scant cough no dyspnea no chest pain overall feels better right hand polyarticular arthritis improved with less swelling/pain left hand with minimal symptoms multiple travels this summer to [place], [place], and [place] does not have pets does not live on farm Problem List Medical Problems: (1) Bilateral pleural effusion Status: Acute (2) Bilateral pneumonia Status: Acute (3) Congestive heart failure Status: Acute Review of Systems Constitutional: No fever Respiratory: No shortness of breath, No dyspnea on exertion Cardiac: No chest pain Abdomen: + diarrhea, No pain Objective Vital Signs Date Time Temp Pulse Resp B/P (MAP) Pulse Ox O2 Delivery O2 Flow Rate FiO2 04/27/18 12:11 36.9 95 20 117/73 (88) 94 04/27/18 09:16 Room Air 04/27/18 07:57 36.8 125 20 150/71 (97) 90 04/27/18 04:04 Room Air 04/27/18 03:47 36.8 125 18 145/70 (95) 91 Room Air 04/26/18 23:42 37.2 124 20 118/67 (84) 92 Room Air 04/26/18 19:49 37.2 125 20 135/72 (93) 92 Room Air 04/26/18 16:08 36.7 121 20 132/73 (92) 92 Room Air Physical Exam General Appearance: no apparent distress, + pertinent finding (looks much younger than stated age) ENT: pharynx normal Neck: no JVD Respiratory/Chest: no respiratory distress, no accessory muscle use, + crackles (both bases) Cardiovascular: no gallop, no murmur, + tachycardia Abdomen: normal bowel sounds, non tender, soft, no organomegaly Extremities: no pedal edema Neurologic/Psychiatric: alert, oriented x 3 Skin: + pertinent finding (darkly tanned) Comments: musculo - right hand - multiple PIPs and DIPs with OA changes; several MCPs and PIPs with minimal synovitis; left hand - no synovitis of any joint. b/l wrists, elbows, shoulders and knees without synovitis. Laboratory Results Last 24 Hours Test 04/26/18 16:21 04/26/18 20:25 04/27/18 07:31 04/27/18 11:12 Bedside Glucose 133 mg/dl 193 mg/dl 134 mg/dl 144 mg/dl Assessment and Plan 87yo female - 1. question of b/l infectious pneumonia vs inflammatory process of lungs vs other - overall her pulmonary symptoms are improved with IV antibiotic therapy. Her CT chest, however, showed very atypical infiltrates. In the differential is hypersensitivity pneumonitis vs new onset ILD vs other. Hypersensitivity pneumonitis panel sent. Awaiting RF and KALEN. Defer on steroids for now since she is improving. She is day #5 of IV antibiotics; stop rocephin & zithromax. Change to PO levaquin 750mg and treat for 2 more days (to complete 7 days in total for antibiotics). 2. synovitis b/l hands - no erosive changes on x-rays to suggest chronic RA or gout. However, gout and RA have not been excluded. Doubt inflammatory OA. Awaiting RF. Check uric acid level in am. She has previously responded to NSAIDS nicely but theoretically NSAIDs can cause ILD and thus will place them on hold for now. 3. ?acute diastolic CHF - unlikely she had decompensated CHF; this was likely either infectious vs inflammatory lung process. 4. atrial tachycardia - poor response to beta blockage and calcium channel blockers. Dr. Gabriel following - antiarrhythmic therapy to be initiated in hopes of conversion to NSR. 5. T2DM - controlled. 6. HTN - controlled. 7. diarrhea - c. diff negative. Abx-associated diarrhea. Immodium prn. Narrow antibiotics. 8. DVT proph - lovenox daily. leave on tele daughter updated at bedside Continued [facility] stay due to: multiple IV medications needed, other ( uncontrolled atrial tachycardia ) Discharge planning: home
[2018-04-27] MEDS: ENOXAPARIN 40 MG/0.4 ML SYR SC SCH (20:54)
[2018-04-27] MEDS: SIMVASTATIN 10 MG TAB PO SCH (20:54)
[2018-04-28 06:18] LABS: BASO % 0.3 %; BASO ABS # 0.04 K/uL (0-0.2); EOS % 1.8 %; EOS ABS # 0.27 K/uL (0-0.5); HEMATOCRIT 35.9 % (37-47); HEMOGLOBIN 11.7 g/dL (12.0-16.0); IG# 0.21 K/uL (0.00-0.02); LYMPH % 8.6 %; LYMPH ABS # 1.28 K/uL (1.2-3.4); MEAN CELL VOLUME 90.2 fL (80-100); MEAN CORPUSCULAR HEMOGLOBIN 29.4 pg (25-34); MEAN CORPUSCULAR HGB CONC 32.6 g/dl (32-36); MEAN PLATELET VOLUME 9.9 fL (7.4-10.4); MONO % 9.7 %; MONO ABS # 1.45 K/uL (0.11-0.59); NEUT % 78.2 %; NEUT ABS # 11.72 K/uL (1.4-6.5); PLATELET COUNT 278 K/uL (130-400); RED CELL DISTRIBUTION WIDTH CV 15.4 % (11.5-14.5); RED CELL DISTRIBUTION WIDTH SD 50.9 fL (36.4-46.3); WHITE BLOOD COUNT 14.97 K/uL (4.8-10.8)
[2018-04-28 06:42] LABS: ALKALINE PHOSPHATASE 99 U/L (45-117); ALT/SGPT 30 U/L (12-78); AST/SGOT 37 U/L (15-37); BLOOD UREA NITROGEN 35 mg/dl (7-18); CALCIUM 7.6 mg/dl (8.5-10.1); CARBON DIOXIDE 20 mmol/L (21-32); CREATININE 1.14 mg/dl (0.60-1.20); GLUCOSE 129 mg/dl (70-99); POTASSIUM 4.1 mmol/L (3.5-5.1); SODIUM 139 mmol/L (136-145); TOTAL PROTEIN 5.5 gm/dl (6.4-8.2); URIC ACID 10.7 mg/dl (2.6-7.2)
[2018-04-28 07:23] VITALS: BP 130/64; PULSE 90; TEMP 36.7; O2SAT 94
[2018-04-28] MEDS: IPRATROPIUM BROMIDE/ALBUTEROL respimat INH INH SCH ×4 (08:17→20:26)
[2018-04-28] MEDS: POTASSIUM CHLORIDE 10 MEQ TABCR PO SCH (08:18)
[2018-04-28] MEDS: DILTIAZEM HCL 60 MG TAB PO SCH ×2 (08:18→12:33)
[2018-04-28] MEDS: INSULIN ASPART 100 UNITS/ML 3 ML PEN SC SCH ×4 (08:19→20:30)
[2018-04-28] MEDS: ASPIRIN 81 MG ECTAB PO SCH (08:20)
[2018-04-28] MEDS: POLYETHYLENE (MIRALAX) 17 GM PACK PO SCH (08:38)
[2018-04-28] MEDS: SENNA 8.6 MG TAB PO SCH (08:38)
[2018-04-28 10:35] VITALS: BP 129/65; PULSE 85; TEMP 37; O2SAT 94
--- NOTE | 2018-04-28 10:38 | PULMONARY PROGRESS NOTE ---
DATE: 04/28/2018 TIME: 9:20 a.m. SUBJECTIVE: The patient does not feel as well today. She had some shortness of breath last evening around midnight. She went to the bathroom, and she felt a little winded. Nursing notes indicate her saturation was 88%. 2 L was applied. Even this morning, she does not feel quite as good as she had been. There is no other new complaint. OBJECTIVE: GENERAL: The patient appears comfortable at rest. VITAL SIGNS: Temperature 36.7. CARDIOVASCULAR: Heart rate at present is 117. She is more irregular than she had been any time I had listened to her in the past. Blood pressure is 130/64. RESPIRATORY: Lung de continue to reveal rales at the right base and to a lesser degree at the left base. Saturation currently is 91% on room air. Earlier this morning, it was 94% on 2 L. VASCULAR: Extremities showed no edema. LABORATORY DATA: The patient had a C-reactive protein done, which is significantly elevated at 9.7. Electrolytes show sodium 139, potassium 4.1, chloride 109, bicarbonate 20. BUN was 35, with a creatinine of 1.14. Uric acid level is elevated at 10.7. Total protein was low at 5.5 with albumin of 2.0. White count is 14.97, hemoglobin 11.7, platelets 278,000. Rheumatoid factor, KALEN, and hypersensitivity pneumonitis profile are still pending. IMPRESSIONS: 1. Right middle lobe and lower lobe infiltrate. 2. Rule out interstitial disease. 3. Small effusions. 4. Mild adenopathy. 5. Tachyarrhythmia. COMMENTS: The patient seemed to have regressed slightly overnight. She has had a little more shortness of breath. She now is having more irregular rhythms. Her respiratory status is still stable but not as good as she had been. She last had a chest x-ray on the . I will repeat one for tomorrow. Consideration could be given to a trial clinically of some steroids. Considerations as to whether this should be done could include the fact that patient is diabetic. Also, we are not certain what her underlying entity is. However, would provide some opportunity perhaps for fairly rapid improvement in her clinical course. We will defer this to Dr. Damico, but I would have no objections if he wanted a steroid trial.
[2018-04-28] MEDS: LEVOFLOXACIN 750 MG TAB PO SCH (12:32)
[2018-04-28] MEDS ORDERED: DILTIAZEM HCL 240 MG CAPCR PO ONE (13:30)
[2018-04-28 14:21] LABS: ANA SCREEN TC 249X NEGATIVE (NEGATIVE)
[2018-04-28 15:38] VITALS: BP 132/64; PULSE 94; TEMP 36.9; O2SAT 91
--- NOTE | 2018-04-28 18:31 | Progress Note ---
Subjective Date of Service: Apr 28, 2018. Subjective Pt evaluation today including: conversation w/ patient, conversation w/ family (son at bedside ), physical exam, chart review, lab review, conversation w/ diet consultant (pulmonary), review of inpatient medication list Pain: right hand - mild; otherwise no pains PO Intake: eating well; nearly 100% of meals Voiding: no voiding problems tele overnight - HRs nearly all <100 NSR with runs of a tach at times but overall much better c/o mild MAYNARD but still able to walk the hallways no cough no new symptoms Problem List Medical Problems: (1) Bilateral pleural effusion Status: Acute (2) Bilateral pneumonia Status: Acute (3) Congestive heart failure Status: Acute Review of Systems Constitutional: No fever, No chills Respiratory: No cough, No sputum Cardiac: No chest pain, No orthopnea, No PND, No edema Abdomen: No pain, No nausea, No vomiting Objective Vital Signs Date Time Temp Pulse Resp B/P (MAP) Pulse Ox O2 Delivery O2 Flow Rate FiO2 04/28/18 15:38 36.9 94 20 132/64 (86) 91 Room Air 04/28/18 10:35 37.0 85 20 129/65 (86) 94 Room Air 04/28/18 09:00 Room Air 04/28/18 07:23 36.7 90 18 130/64 (86) 94 Nasal Cannula 2.0 04/28/18 00:00 Nasal Cannula 2.0 04/27/18 23:26 37.0 72 18 112/56 (74) 90 Nasal Cannula 2.0 04/27/18 19:41 36.3 95 20 116/58 (77) 91 Room Air Physical Exam General Appearance: no apparent distress, + pertinent finding (looks good ) ENT: pharynx normal Neck: no JVD Respiratory/Chest: no respiratory distress, no accessory muscle use, + crackles (both bases - no change) Cardiovascular: regular rate, rhythm, no gallop, no murmur Abdomen: normal bowel sounds, non tender, soft, no organomegaly Extremities: no pedal edema Neurologic/Psychiatric: alert, oriented x 3 Skin: + pertinent finding (darkly tanned) Comments: musculo - right hand - minimal synovitis of several PIPs and MCPs; left hand w/ o synovitis Laboratory Results Last 24 Hours Test 04/27/18 20:01 04/28/18 00:03 04/28/18 05:33 04/28/18 07:14 Bedside Glucose 181 mg/dl 126 mg/dl Erythrocyte Sedimentation Rate 20 mm/hr Sodium Level 139 mmol/L Potassium Level 4.1 mmol/L Chloride Level 109 mmol/L Carbon Dioxide Level 20 mmol/L Anion Gap 10.0 mmol/L Blood Urea Nitrogen 35 mg/dl Creatinine 1.14 mg/dl Est Creatinine Clear Calc Drug Dose 34.9 ml/min Estimated GFR () 50.4 Estimated GFR (Non- 43.5 BUN/Creatinine Ratio 30.6 Random Glucose 129 mg/dl Uric Acid 10.7 mg/dl Calcium Level 7.6 mg/dl Magnesium Level 2.4 mg/dl Total Bilirubin 0.3 mg/dl Direct Bilirubin < 0.1 mg/dl Aspartate Amino Transf (AST/SGOT) 37 U/L Alanine Aminotransferase (ALT/SGPT) 30 U/L Alkaline Phosphatase 99 U/L C-Reactive Protein 9.70 mg/dl Total Protein 5.5 gm/dl Albumin 2.0 gm/dl White Blood Count 14.97 K/uL Red Blood Count 3.98 M/uL Hemoglobin 11.7 g/dL Hematocrit 35.9 % Mean Corpuscular Volume 90.2 fL Mean Corpuscular Hemoglobin 29.4 pg Mean Corpuscular Hemoglobin Concent 32.6 g/dl Platelet Count 278 K/uL Mean Platelet Volume 9.9 fL Neutrophils (%) (Auto) 78.2 % Lymphocytes (%) (Auto) 8.6 % Monocytes (%) (Auto) 9.7 % Eosinophils (%) (Auto) 1.8 % Basophils (%) (Auto) 0.3 % Neutrophils # (Auto) 11.72 K/uL Lymphocytes # (Auto) 1.28 K/uL Monocytes # (Auto) 1.45 K/uL Eosinophils # (Auto) 0.27 K/uL Basophils # (Auto) 0.04 K/uL RDW Standard Deviation 50.9 fL RDW Coefficient of Variation 15.4 % Immature Granulocyte % (Auto) 1.4 % Immature Granulocyte # (Auto) 0.21 K/uL Test 04/28/18 11:20 04/28/18 16:12 Bedside Glucose 163 mg/dl 145 mg/dl Assessment and Plan 87yo female - 1. question of b/l infectious pneumonia vs inflammatory process of lungs vs other - overall her pulmonary symptoms have improved but her lung exam is unchanged. She continues with mild MAYNARD only. In the differential is hypersensitivity pneumonitis vs new onset ILD vs other. Hypersensitivity pneumonitis panel sent and returned negative. RF and KALEN both negative. day #6 of IV/po abx today. Cont levaquin 750mg and treat 7 days in total. I elected to start PO prednisone 40mg daily for her hands (see below) but, if she has inflammatory lung disease, she may feel better w/ steroids as well. CXR in am per Dr. Michelle. Appreciate his consultation. 2. synovitis b/l hands - no erosive changes on x-rays to suggest chronic RA or gout. RF negative. KALEN negative. Doubt inflammatory OA. Uric acid level markedly elevated (nearly 11). Her symptoms in the hands started very abruptly and AT NIGHT. This fits with gout. The response to NSAIDs fits nicely with gout as well. If this was rheumatoid arthritis she likely would be having progressive symptoms. Prednisone started today; I anticipate rapid response to this. 3. ?acute diastolic CHF - unlikely she had decompensated CHF; this was likely either infectious vs inflammatory lung process. 4. atrial tachycardia - nice response to fleicanide overnight. Rates much better. No further anti-arrhythmic therapy. Convert cardizem q6h to CD (240mg once a day). Keep on tele. 5. T2DM - controlled. 6. HTN - controlled. 7. diarrhea - c. diff negative. Abx-associated diarrhea. Immodium prn. 8. DVT proph - lovenox daily. leave on tele son updated at bedside home tomorrow? may need 2-step prior to discharge Continued [facility] stay due to: multiple IV medications needed, other ( uncontrolled atrial tachycardia ) Discharge planning: home
[2018-04-28 20:00] VITALS: BP 134/61; PULSE 94; TEMP 36.6; O2SAT 91
[2018-04-28] MEDS: SIMVASTATIN 10 MG TAB PO SCH (20:26)
[2018-04-28] MEDS: ENOXAPARIN 40 MG/0.4 ML SYR SC SCH (20:27)
[2018-04-28 23:17] VITALS: BP 145/71; PULSE 95; TEMP 36.7; O2SAT 91
[2018-04-29 04:26] VITALS: BP 159/72; PULSE 121; TEMP 36.6; O2SAT 91
[2018-04-29 06:34] LABS: HEMOGLOBIN 13.1 g/dL (12.0-16.0); MEAN CELL VOLUME 90.7 fL (80-100); MEAN PLATELET VOLUME 10.3 fL (7.4-10.4); PLATELET COUNT 318 K/uL (130-400); RED CELL DISTRIBUTION WIDTH CV 15.5 % (11.5-14.5); RED CELL DISTRIBUTION WIDTH SD 51.4 fL (36.4-46.3); WHITE BLOOD COUNT 15.92 K/uL (4.8-10.8)
[2018-04-29 07:01] LABS: CREATININE 1.08 mg/dl (0.60-1.20)
[2018-04-29 07:22] VITALS: BP 166/71; PULSE 116; TEMP 36.7; O2SAT 92
[2018-04-29] MEDS ORDERED: METFORMIN HCL 500 MG TAB PO SCH (07:30)
[2018-04-29] MEDS: ASPIRIN 81 MG ECTAB PO SCH (08:11)
[2018-04-29] MEDS: IPRATROPIUM BROMIDE/ALBUTEROL respimat INH INH SCH ×2 (08:11→11:58)
[2018-04-29] MEDS: POTASSIUM CHLORIDE 10 MEQ TABCR PO SCH (08:11)
[2018-04-29] MEDS: INSULIN ASPART 100 UNITS/ML 3 ML PEN SC SCH ×2 (08:13→12:00)
[2018-04-29] MEDS: POLYETHYLENE (MIRALAX) 17 GM PACK PO SCH (08:20)
[2018-04-29] MEDS: SENNA 8.6 MG TAB PO SCH (08:20)
[2018-04-29] MEDS ORDERED: DILTIAZEM HCL 240 MG CAPCR PO SCH (09:00)
--- NOTE | 2018-04-29 09:26 | DIAGNOSTIC IMAGING REPORT ---
CHEST 2 VIEWS ROUTINE CLINICAL HISTORY: f/u lung infiltrates COMPARISON STUDY: Chest CT April 22, 2018 and chest radiograph April 25, 2018. FINDINGS: Small bilateral pleural effusions are noted. There is no pneumothorax. Bilateral airspace opacities, slightly greater on the right, have slightly progressed. Cardiomegaly is again noted. IMPRESSION: 1. Reduction of bilateral airspace opacities, greater within the right lung. Pneumonia is favored. Pulmonary edema could appear similar. 2. Small bilateral pleural effusions. Electronically signed by: Alec Lara M.D. 04/29/2018 9:25 AM Dictated Date/Time: 04/29/2018 9:23 AM
[2018-04-29 10:44] VITALS: BP 166/71; PULSE 116; TEMP 36.7; O2SAT 92
[2018-04-29 11:17] VITALS: BP 148/66; PULSE 100; TEMP 36.6; O2SAT 93
[2018-04-29] MEDS: LEVOFLOXACIN 750 MG TAB PO SCH (11:58)
--- NOTE | 2018-04-29 14:01 | PULMONARY PROGRESS NOTE ---
DATE: 04/29/2018 TIME: 1:30 p.m. SUBJECTIVE: The patient seems a little vague. She does not complain of shortness of breath, but when I asked her how she was, she said okay now. She was ambulated with a 2-step and her oxygen level goes down to 88% or less. Nursing this morning had walked her and she went down to 85%. Thus, she appears to need oxygen with exertion. She is not complaining of any pain today. OBJECTIVE: GENERAL: The patient appears comfortable. VITAL SIGNS: Temperature is 36.6. Heart rate is now 88. It is irregular. Blood pressure is 148/66. LUNGS: Lung de were again showing rales at the right lower lung field. The left side seems almost clear today. EXTREMITIES: Showed no cyanosis, clubbing or edema. LABORATORY DATA: The patient did have a chest x-ray today. It reported a decrease in the infiltrates, but my review suggests no significant change. There may be slightly better aeration at the left base than prior. White count today is 15.92. Hemoglobin 13.1. Platelets 318,000. Blood sugar today has been as high as 220. Rheumatoid factor did come back as negative. The KALEN screen was negative. The hypersensitivity pneumonitis profile was negative. IMPRESSION: 1. Right middle lobe and right lower lobe infiltrate. 2. Mild mediastinal adenopathy. 3. Small bilateral pleural effusions. 4. Possible interstitial lung disease. COMMENTS AND RECOMMENDATIONS: The patient is being discharged today. Dr. Damico spoke to me about sending her home with some prednisone. I have no problem with that. He is asking us to follow up with her in about 2 weeks. The patient is diabetic and will need a close followup on her sugars. She states that her physician who is her primary will be leaving very soon. Thus, this needs to be clarified with her that she must find someone to manage her sugars appropriately. Thank you for asking me to assist in her care.
[2018-04-29] MEDS ORDERED: PRED10TA PO (14:38)
[2018-04-29] MEDS ORDERED: OXGN (14:38)
[2018-04-29] MEDS ORDERED: OMEP40CA41 PO (14:38)
[2018-04-29] MEDS ORDERED: GLC/500 PO (14:38)
[2018-04-29] MEDS ORDERED: IPRA1AER2 INH (14:38)
[2018-04-29] MEDS ORDERED: DLTCD/240 PO (14:38)
--- NOTE | 2018-04-29 14:51 | Discharge Instructions ---
Discharge Instructions Date of Service Apr 29, 2018. Admission Reason for Admission: shortness of breath Discharge Discharge Diagnosis / Problem: shortness of breath due to pneumonia or inflammatory lung disease Discharge Goals Goal(s): Learn about illness, Diagnostic testing, Therapeutic intervention Activity Recommendations Activity Limitations: as noted below Over the next 1-2 weeks as you recover from your hospitalization please "take it easy." No heavy basketballs and footballs reverser, no strenuous activities, etc. Please avoid going into your basement due to concern for mold exposure. . Instructions / Follow-Up Instructions / Follow-Up From Dr. Damico - 1. At this time we are uncertain if your recent shortness of breath is due to pneumonia or from some form of "inflammatory lung disease." As the next few weeks go on it will become more clear what the final diagnosis is. You have completed a full course of antibiotics in the event you had pneumonia. If you do indeed have some form of inflammatory lung disease we are recommending a course of prednisone. The prednisone will also help your hands ( arthritis). Please do the following - * prednisone 30mg once a day for 7 days, then 20mg a day thereafter until you see Dr. Michelle; new prescription sent to [facility] for you * start the prednisone tomorrow on Monday * use oxygen 1.5 liters WITH ACTIVITY ONLY; you do not need to use the oxygen while resting, while sleeping, or while sitting/watching TV/etc * combivent inhaler - 1 puff every 6 hours as needed for cough/wheezing/ shortness of breath Again please AVOID going into your basement because of potential mold exposure. 2. Diabetes - please INCREASE your metformin to 500mg twice a day with meals. New script sent to [facility] for you. Check your blood sugars once a day and keep a log of these values. Your sugars may run high because of the prednisone. I would suggest that each day you vary the time you are checking the blood sugar (example - on one day check it first thing in AM, the next day at bedtime , and so forth). 3. Rapid heart rate/rhythm - please take cardizem CD 240mg once a day. Start this tomorrow on MONDAY. New script sent to [facility] for you. 4. Take prilosec (omeprazole) 40mg once a day to help prevent stomach irritation while taking prednisone. New script sent to [facility] for you. 5. Follow-up - * see Dr. Michelle - ideally within 1 week * see Dr. Gabriel - ideally within 1 week * see your family doctor THIS WEEK - ideally within 3-4 days 6. Return to [facility] if - * you have fever over 100.5 degrees * you are having worsening shortness of breath despite your oxygen, prednisone, inhaler, etc * you are having a hard time keeping your blood sugars normal (example - your sugars are running 200 or higher despite the metformin) * any other concerns Current Hospital Diet Patient's current hospital diet: Diabetes Type 2 Diet Discharge Diet Recommended Diet: Diabetes Type 2 Diet Procedures Procedures Performed: CAT scan of your lungs - bilateral "infiltrates" (either pneumonia or inflammatory lung disease). Sonograms of your legs (no DVT blood clots seen). Hand x-rays - osteoarthritis changes only. Echocardiogram - normal heart function. Pending Studies Studies pending at discharge: no Laboratory Results Hemoglobin A1c Test 04/23/18 06:07 Range/Units Estimated Average Glucose 154 mg/dl Hemoglobin A1c 7.0 H 4.5-5.6 % Lipid Panel Test 04/23/18 06:07 Range/Units Triglycerides Level 298 H 0-150 mg/dl Cholesterol Level 97 0-200 mg/dl HDL Cholesterol 15 mg/dl Cholesterol/HDL Ratio 6.5 LDL Cholesterol, Calculated 22 mg/dl Medical Emergencies . Who to Call and When: Medical Emergencies: If at any time you feel your situation is an emergency, please call 911 immediately. . Non-Emergent Contact Non-Emergency issues call your: Primary Care Provider, Elevator Builder, Process Improvement Specialist Call Non-Emergent contact if: temperature is above 100.5, your pain is not controlled, your pain is worsening, your pain is unusual for you, your pain is concerning you, you have any medication questions . . "Provider Documentation" section prepared by Doc Damico. .
[2018-04-29 14:54] VITALS: BP 128/73; PULSE 54; TEMP 36.9; O2SAT 96
--- NOTE | 2018-04-30 09:05 | Discharge Summary ---
Discharge Summary Date of Service Apr 30, 2018. Discharge Summary Admission Date: Apr 22, 2018 at 18:33 Discharge Date: Apr 29, 2018 Discharge Disposition: Home Principal Diagnosis: b/l pneumonia vs inflammatory lung disease Problems/Secondary Diagnoses: 1. T2DM 2. 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 hyperlipidemia 5. atrial tachycardia 6. CKD stage 3 7. need for ambulatory oxygen - 1.5 liters with ambulation only Procedures: 1. echocardiogram: * -- Conclusions -- * 1. Normal LV size. Moderate concentric LVH. * 2. LVEF 65-70%. No regional wall motion abnormalities. * 3. Normal RV size and function. * 4. Grade I diastolic dysfunction. * 5. No significant valvular pathology. * 6. Normal estimated RA and PA pressures. * 7. No prior studies for comparison. 2. CT chest: IMPRESSION: 1. No pulmonary emboli identified. 2. Bilateral subpleural airspace opacities with interstitial thickening. Pulmonary edema is favored however superimposed pneumonia could appear similar. A chest CT in one month to ensure resolution is recommended. 3. Small right and trace left pleural effusions. 4. Mild mediastinal and right hilar lymphadenopathy which is likely reactive but can be assessed on follow-up chest CT to ensure resolution. 3. b/l lower extremity venous doppler: IMPRESSION: No DVT within the right or left lower extremity. 4. b/l hand x-rays: IMPRESSION: 1. No fracture or dislocation within the right or left hand. 2. Mild/moderate osteoarthritis. 3. Mild soft tissue swelling within the hand. Consultations: cardiology - Kunal Gabriel MD pulmonary - Odilon Michelle DO infectious disease - Angella Glover DO Medication Reconciliation New Medications: Home O2 Therapy (Oxygen) Gas 1.5 LITER NA with activity, #1 UNIT 0 Refills Omeprazole (Prilosec) 40 Mg Cap 1 CAP PO DAILY for 30 Days, #30 CAP 1 Refill Prednisone (Prednisone) 10 Mg Tab 10 MG PO DIRECTED, #60 TAB 0 Refills starting 04/30/18: take 3 tabs daily x 7 days, then 2 tabs once daily thereafter. Take with food. Diltiazem Hcl (Diltiazem Cd) 240 Mg Capcr 240 MG PO QAM, #30 CAP 5 Refills Ipratropium-Albuterol (Combivent Respimat) 1 Aer Aer 1 PUFFS INH QID PRN for cough/wheeze, #1 INHALER 1 Refill Changed Medications: Metformin Hcl (Glucophage) 500 Mg Tab 500 MG PO BIDM, #60 TAB 5 Refills (Changed from: QPM; Refills: ; take 500mg with evening meal) note increased dose Continued Medications: Aspirin (Aspirin Ec) 81 Mg Tab 81 MG PO DAILY Potassium Chloride (Micro-K Ext Rel) 10 Meq Capcr 10 MEQ PO DAILY, CAP Simvastatin (Zocor) 10 Mg Tab 10 MG PO HS, TAB Discontinued Medications: Bisoprolol & Hydrochlorothiazi (Bisoprolol Fumarate/[place]) 1 Tab Tab 5-6.25 MG PO BID Naproxen (Aleve) 220 Mg Tab 220 MG PO BID PRN for Pain, TAB Referrals At Discharge Follow up Referrals: Senior Training Specialist Referral - Within 1 Week with Kunal Gabriel MD Blacksmith Apprentice Referral - Within 1 Week with Odioln Michelle, Discharge Exam Physical Exam: General Appearance: no apparent distress, + pertinent finding (looks younger than stated age) ENT: pharynx normal Neck: no JVD Respiratory/Chest: no respiratory distress, no accessory muscle use, + crackles (bibasilar, mildly worse on right) Cardiovascular: regular rate, rhythm, no gallop, no murmur, normal peripheral pulses Abdomen / GI: normal bowel sounds, non tender, soft, no organomegaly Extremities: no pedal edema, + pertinent finding (right hand - minimal/ resolving synovitis of several MCPs and PIPs; handgrip on right 5/5; left hand w /o synovitis of any small joint ) Neurologic/Psychiatric: alert, oriented x 3 Skin: + pertinent finding (deeply tanned) Hospital Course HISTORY OF PRESENT ILLNESS: 87 y/o female with h/o T2DM and HTN who presented with c/o SOB. Pt stated that she had been SOB over the prior two weeks. This had been getting worse. It was with any exertion, including getting dressed and doing other ADLs. She did not have SOB at rest or when lying flat. She also started to have b/l LE swelling which had never happened to her in the past. Her SOB resolved when she rested. No prior history of pulmonary disease or chronic breathing issues. She had been eating without issue. Pt denied fever, chest pain, abd pain, LE pain. She also mentioned she had been having b/l hand pain, worse on the right , for several weeks and had been treated with meloxicam by her PCP. She had traveled multiple times this summer including a recent trip to [place], [place]. HOSPITAL COURSE: 1. question of b/l infectious pneumonia vs inflammatory disease process of lungs (ie- interstitial lung disease, hypersensitivity pneumonitis, etc) vs other - The patient was given IV/PO antibiotics in the event this was community- acquired pneumonia. She completed a 7+ day course of antibiotics while hospitalized. Despite treatment of antibiotics her chest x-rays continued to show b/l infiltrates and she continued with a NC O2 requirement with activity/ ambulation. She was seen in consult by [facility], Dr. Odilon Michelle, and he expressed concerns for hypersensitivity pneumonitis vs new onset ILD vs some other non-infectious etiology. Hypersensitivity pneumonitis panel was sent and returned negative. Rheumatoid factor and KALEN both were negative. Sed rate was 20 and CRP was nearly 10. The medical team elected to start empiric prednisone and she will remain on such until seen by Dr. Michelle in the pulmonary clinic. She will likely need repeat imaging at that time. Of note - the patient's family reported that Mrs. Woodruff had been spending a considerable amount of time in her home's basement this summer due to standing water in the basement. She had been cleaning and mopping the basement and thus there is the possibility of mold exposure leading to her presenting pulmonary issues. She was counseled to avoid going in her basement if indeed she is having mold and/or other environmental exposures. A two-step oxygen test was completed prior to discharge and Mrs. Woodruff will need 1.5 liters of [place] O2 WITH AMBULATION ONLY. 2. synovitis b/l hands, worse on right - no erosive changes were seen on hand x -rays to suggest chronic RA or gout. RF negative. KALEN negative. Doubt inflammatory OA. Uric acid level returned markedly elevated at 10.7. Her symptoms in the hands had started very abruptly and AT NIGHT time This history suggests acute gouty arthritis. The prednisone being used for #1 above will certainly treat her hand arthritis as well. In light of the severity and time-course of her hand arthritis (nearly 1 month of symptoms) consideration towards starting allopurinol prophylaxis in about 1 month's time should be made. If there is concern that she has RA rather than gout then consultation with rheumatology should be considered. 3. ?acute diastolic CHF - the patient was given diuresis early on in her stay without any clinical improvement and thus it was felt that CHF was highly unlikely. 4. atrial tachycardia - the patient was noted to have numerous runs of asymptomatic atrial tachycardia throughout her stay. She had no response to beta bonnie therapy. She was seen in consult by Dr. Kunal Gabriel, [facility], who recommended cardizem for this. She also received a 1-time dose of fleicanide. Her rates improved significantly with these measures. At discharge she will take cardizem CD 240mg once a day. No atrial fibrillation was seen while here. 5. T2DM - with institution of prednisone her glycemic control was modestly suboptimal. She will continue on metformin 500mg BID. She was counseled that depending on her home fingersticks her metformin dose may need to be increased. She was given a free glucometer and test strips prior to discharge and asked to check fingersticks at least daily at home. Total Time Spent: Greater than 30 minutes This includes examination of the patient, discharge planning, medication reconciliation, and communication with other providers. Discharge Instructions Please refer to the electronic Patient Visit Report (Discharge Instructions) for additional information. Follow-Up 1. see Dr. Dajuan Isaac, PCP, within [address] Kunal Gabriel, [facility], within [address] Odilon Michelle or his PA, [facility], within 1 week Additional Copies To Odilon Michelle DO; Kunal Gabriel MD; Dajuan Isaac M.D.
== END 2018-04-29 16:12 | disposition home or self-care (01) | DRG 871 ==
LOC: C.EDB 15:58 → C.2T 18:33 → ENRESERV 18:49
PROVIDERS: ADMIT Family Medicine; ATTEND Internal Medicine
DX: A41.9 Sepsis, unspecified organism (principal); J18.1 Lobar pneumonia, unspecified organism; J96.01 Acute respiratory failure with hypoxia; I50.31 Acute diastolic (congestive) heart failure; J84.9 Interstitial pulmonary disease, unspecified; I13.0 Hypertensive heart and chronic kidney disease with heart failure and stage 1 through stage 4 chronic kidney disease, or unspecified chronic kidney disease; I47.1 Supraventricular tachycardia; K52.1 Toxic gastroenteritis and colitis; T36.95XA Adverse effect of unspecified systemic antibiotic, initial encounter; E11.9 Type 2 diabetes mellitus without complications; E78.5 Hyperlipidemia, unspecified; M10.041 Idiopathic gout, right hand; M10.042 Idiopathic gout, left hand; M79.89 Other specified soft tissue disorders; N18.3 Chronic kidney disease, stage 3 (moderate); Z66 Do not resuscitate; Z87.39 Personal history of other diseases of the musculoskeletal system and connective tissue; Z79.82 Long term (current) use of aspirin; Z79.84 Long term (current) use of oral hypoglycemic drugs; Z79.899 Other long term (current) drug therapy

== ENCOUNTER → 2018-05-07 | Outpatient (CLI) | payer BC ==
[~2018-05-07] MED LIST: ASPI81TA28 PO; DILT240C57 PO; DLTCD/240 PO; FURO-85 PO; GLC/500 PO; IPRA1AER2 INH; OMEP40CA41 PO; OXGN; POTA10CA28 PO; PRED10TA PO; PRLSR20 PO; SIMV10TA2 PO
[2018-05-07 13:07] LABS: BASO % 0.1 %; BASO ABS # 0.02 K/uL (0-0.2); EOS % 0.2 %; EOS ABS # 0.04 K/uL (0-0.5); HEMATOCRIT 45.9 % (37-47); IG# 0.32 K/uL (0.00-0.02); LYMPH % 7.1 %; LYMPH ABS # 1.62 K/uL (1.2-3.4); MEAN CELL VOLUME 89.5 fL (80-100); MEAN CORPUSCULAR HEMOGLOBIN 29.2 pg (25-34); MEAN CORPUSCULAR HGB CONC 32.7 g/dl (32-36); MEAN PLATELET VOLUME 10.8 fL (7.4-10.4); MONO % 4.6 %; MONO ABS # 1.05 K/uL (0.11-0.59); NEUT % 86.6 %; NEUT ABS # 19.86 K/uL (1.4-6.5); PLATELET COUNT 211 K/uL (130-400); RED CELL DISTRIBUTION WIDTH CV 15.4 % (11.5-14.5); RED CELL DISTRIBUTION WIDTH SD 50.7 fL (36.4-46.3); WHITE BLOOD COUNT 22.91 K/uL (4.8-10.8)
[2018-05-07 13:48] LABS: BLOOD UREA NITROGEN 52 mg/dl (7-18); CALCIUM 7.9 mg/dl (8.5-10.1); CARBON DIOXIDE 18 mmol/L (21-32); CREATININE 1.42 mg/dl (0.60-1.20); GLUCOSE 220 mg/dl (70-99); POTASSIUM 5.1 mmol/L (3.5-5.1); SODIUM 137 mmol/L (136-145)
== END | disposition home or self-care (01) ==
LOC: C.LAB1850 12:10
PROVIDERS: ATTEND Physician Assistant
DX: J18.9 Pneumonia, unspecified organism (principal); E11.22 Type 2 diabetes mellitus with diabetic chronic kidney disease; R06.02 Shortness of breath